=== PATIENT | male | born 1945 | race Caucasian/White ===

== ENCOUNTER 2016-10-11 07:11 | Day surgery (SDC) | payer MEDICARE, OTHER ==
[~2016-10-11 07:11] MED LIST: KETOROLAC TROMETHAMINE 0.45% 4 DROP/0.4 ML DROPERETTE OS PRN; TETRACAINE HCL 0.5% OPH SOLN 0.6 ML DROPERETTE OS PRN
[2016-10-11] MEDS ORDERED: PHENYLEPHRINE/KETOROLAC 1%-0.3% 4 ML VIAL ONE (07:16)
[2016-10-11] MEDS ORDERED: EPINEPHRINE INJ/PF 1 MG/1 ML AMPULE ONE (07:16)
[2016-10-11] MEDS ORDERED: CHONDR SU A NA/HYALUR INTRAOC KIT (SURGICARE) ONE (07:16)
[2016-10-11] MEDS ORDERED: LIDOCAINE 1% INJ-PF (10 MG/ML) 30 ML SDV ONE (07:16)
[2016-10-11] MEDS: TROPICAMIDE 1% OPH SOLN 3 ML OS PRN ×3 (08:01→08:21)
[2016-10-11] MEDS: BESIFLOXACIN HCL 0.6% OPH SUSP 5 ML BOTTLE OS PRN ×3 (08:01→09:24)
[2016-10-11] MEDS: CYCLOPENTOLATE 0.2%/PHENYLEPHRINE 1% OPH SOLN 2 ML OS PRN ×3 (08:01→08:21)
[2016-10-11] MEDS: TETRACAINE HCL 0.5% OPH SOLN 2 ML OS PRN ×3 (08:02→08:58)
[2016-10-11] MEDS ORDERED: FENTANYL CITRATE INJ/PF 100 MCG/2 ML AMPUL ONE (08:53)
[2016-10-11] MEDS ORDERED: MIDAZOLAM 2 MG/2 ML INJ ONE (08:53)
--- NOTE | 2016-10-11 10:19 | [facility] OPERATIVE REPORT E ---
[facility] Operative Report NAME: JOHN PAUL SWEENEY AGE: 71Y DATE OF SURGERY: ROOM: PREOPERATIVE DIAGNOSIS: CATARACT, LEFT EYE. POSTOPERATIVE DIAGNOSIS: CATARACT, LEF EYE. OPERATION: Cataract extraction with intraocular lens implant of the left eye. SURGEON: WALTER CAUSEY M.D. ANESTHESIA: Topical. PROCEDURE: After obtaining appropriate consent, the patient's T eye was prepped and draped in sterile fashion as well as the surgeon in a sterile manner and cataract surgery was started. First a paracentesis blade was used to make a small side-port incision. Viscoelastic was used to inflate the anterior chamber. Next a 2.4 mm incision was made with the paracentesis blade. A continuous capsulorrhexis incision was made using a cystotome and Utrata forceps. Following this hydrodissection was carried out to make the lens fully loose and mobile and it was rotated 90 degrees. Following this, a phokmv-oqi-fvsvezh technique was used to phacoemulsify the lens with a CDE of . The remaining cortex was removed with irrigation/aspiration. Provisc was instilled into the capsular bag to inflate the bag. A SN60WF, 20.5 SN60 WF lens CDE 13.34 diopter lens was placed. The remaining viscoelastic material was removed with irrigation/aspiration. Following this, a 10-0 nylon suture was used to close the incision and it was found to be watertight. Vigamox was instilled in the eye and a protective shield was placed over the eye. The patient returned to the postoperative recovery in stable condition. DICTATING PHYSICIAN: WALTER CAUSEY M.D. [id number] PHY#: [id number] ID: [id number] JOB#: [id number] ACCT: [id number] cc:WALTER CAUSEY M.D. >
--- NOTE | 2016-10-11 10:23 | DISCHARGE SUMMARY E ---
Discharge Summary NAME: JOHN PAUL SWEENEY : 1945 AGE: 71Y ADMITTED: 10/11/2016 DISCHARGED: BRIEF HISTORY: This is a 71-year-old male who underwent cataract extraction of the left eye. DIAGNOSIS: Cataract, left eye. INDICATIONS FOR SURGERY: He underwent surgery because he was having difficulty seeing words on the T.V. DISCHARGE INSTRUCTIONS AND FOLLOWUP: He should be on a regular diet. No bending at his waist. No heavy lifting. He is to use his Besivance, Ilevro and Durezol at 3:00 p.m. and 8:00 p.m. and sleep with a rigid shield, and I will see him for his 1-day postoperative tomorrow. DICTATING PHYSICIAN: WALTER CAUSEY M.D. [id number] PHY#: [id number] ID: [id number] JOB#: [id number] ACCT: [id number] cc:WALTER CAUSEY M.D. >
== END 2016-10-11 10:29 | disposition home or self-care (01) ==
LOC: SC 07:11
PROVIDERS: ATTEND Internal Medicine
PROC: 08RK3JZ Replacement of Left Lens with Synthetic Substitute, Percutaneous Approach (ICD-10-PCS; principal; 2016-10-11 08:30)
DX: H25.12 Age-related nuclear cataract, left eye (principal); H04.123 Dry eye syndrome of bilateral lacrimal glands; H57.03 Miosis; Z96.1 Presence of intraocular lens; E11.9 Type 2 diabetes mellitus without complications; I10 Essential (primary) hypertension; J44.9 Chronic obstructive pulmonary disease, unspecified; C91.11 Chronic lymphocytic leukemia of B-cell type in remission; Z87.891 Personal history of nicotine dependence; Z79.82 Long term (current) use of aspirin; Z79.4 Long term (current) use of insulin; Z79.51 Long term (current) use of inhaled steroids; Z79.899 Other long term (current) drug therapy; Z99.81 Dependence on supplemental oxygen; Z85.038 Personal history of other malignant neoplasm of large intestine
CPT/HCPCS: 82962; 66984; V2632; J2250; J3490 ×2; A9270; J3010; C9447; 142; J0171

== ENCOUNTER 2017-04-03 15:15 | Emergency (ER) | payer MEDICARE, OTHER ==
[2017-04-03] MEDS ORDERED: ACETAMINOPHEN 325 MG TABLET PO ONE ×2 (16:54→19:16)
--- NOTE | 2017-04-03 16:54 | ER Document Report ---
ED Medical Screen (RME) - General Chief Complaint: Cold Symptoms Stated Complaint: COLD Time Seen by Provider: 04/03/17 16:52 Mode of Arrival: Ambulatory Information source: Patient Notes: 72-year-old male presents to ED for cough congestion short of breath he is on oxygen. He is just recently been discharged from the hospital for pneumonia. He has got fever of 100.7 with decreased respirations and crackles. He is here with his who also has shortness of breath cough and congestion. He will be treated with Tylenol and x-ray will be received gotten as well as a CBC and chemistry. He is on home O2 I have greeted and performed a rapid initial assessment of this patient. A comprehensive ED assessment and evaluation of the patient, analysis of test results and completion of medical decision making process will be conducted by an additional ED providers. TRAVEL OUTSIDE OF THE [place] IN LAST 30 DAYS: No - Related Data Allergies/Adverse Reactions: amlodipine Allergy (Verified 04/03/17 15:17) swells and retains fluid pioglitazone [From Actos] Allergy (Verified 04/03/17 15:17) swells and retains fluid Past Medical History - Past Medical History Cardiac Medical History: Reports: Hx Heart Attack - 2002, Hx Hypercholesterolemia, Hx Hypertension Pulmonary Medical History: Reports: Hx Asthma, Hx COPD Neurological Medical History: Denies: Hx Cerebrovascular Accident, Hx Seizures GI Medical History: Denies: Hx Hepatitis, Hx Hiatal Hernia, Hx Ulcer Infectious Medical History: Denies: Hx Hepatitis Past Surgical History: Reports: Hx Open Heart Surgery - CABG X5 . Denies: Hx Pacemaker - Immunizations Hx Diphtheria, Pertussis, Tetanus Vaccination: No Physical Exam - Vital signs Vitals: Temp Pulse Resp BP Pulse Ox 100.7 F H 109 H 20 152/58 H 92 04/03/17 15:34 04/03/17 15:34 04/03/17 15:34 04/03/17 15:34 04/03/17 15:34 Course - Vital Signs Vital signs: Temp Pulse Resp BP Pulse Ox 100.7 F H 109 H 20 152/58 H 92 04/03/17 15:34 04/03/17 15:34 04/03/17 15:34 04/03/17 15:34 04/03/17 15:34
[2017-04-03 17:21] LABS: ABSOLUTE LYMPHOCYTES (AUTO) 0.7 10^3/uL (0.5-4.7); ABSOLUTE MONOCYTES (AUTO) 0.5 10^3/uL (0.1-1.4); ABSOLUTE NEUT (AUTO) 5.2 10^3/uL (1.7-8.2); BASOPHILS % (AUTO) 0.7 % (0-2); EOSINOPHILS % (AUTO) 0.5 % (0-6); HEMATOCRIT 42.1 % (37.9-51.0); HEMOGLOBIN 14.2 g/dL (13.5-17.0); HGB HCT DIFFERENCE 0.5; LYMPHOCYTES % (AUTO) 10.9 % (13-45); MEAN CORPUSCULAR HEMOGLOBIN 27.8 pg (27.0-33.4); MEAN CORPUSCULAR HGB CONC 33.6 g/dL (32.0-36.0); MEAN CORPUSCULAR VOLUME 83 fl (80-97); MONOCYTES % (AUTO) 8.1 % (3-13); RED CELL DISTRIBUTION WIDTH 14.8 % (11.5-14.0); SEGMENTED NEUTROPHILS % (AUTO) 79.8 % (42-78); WHITE BLOOD COUNT 6.5 10^3/uL (4.0-10.5)
--- NOTE | 2017-04-03 17:26 | RADIOLOGY REPORT (SQ) ---
EXAM DESCRIPTION: CHEST PA/LAT COMPLETED DATE/TIME: 04/03/2017 5:16 pm REASON FOR STUDY: Cough congestion fever COMPARISON: 06/08/2015 EXAM PARAMETERS: NUMBER OF VIEWS: two views TECHNIQUE: Digital Frontal and Lateral radiographic views of the chest acquired. RADIATION DOSE: NA LIMITATIONS: none FINDINGS: LUNGS AND PLEURA: Cannot exclude ill-defined opacification in the retrocardiac area with s light blurring of the left hemidiaphragm. MEDIASTINUM AND HILAR STRUCTURES: No masses or contour abnormalities. HEART AND VASCULAR STRUCTURES: Heart normal size. No evidence for failure. BONES: No acute findings. HARDWARE: None in the chest. OTHER: No other significant finding. IMPRESSION: Cannot exclude a limited left lower lobe infiltrate. TECHNICAL DOCUMENTATION: JOB ID: [id number] [employer]- All Rights Reserved
[2017-04-03 17:37] LABS: ALANINE AMINOTRANSFERASE 65 U/L (21-72); ALBUMIN 4.4 g/dL (3.5-5.0); ALKALINE PHOSPHATASE 60 U/L (38-126); ANION GAP 14 (5-19); ASPARTATE AMINO TRANSFERASE 69 U/L (17-59); BILIRUBIN,DIRECT 0.5 mg/dL (0.0-0.4); BLOOD UREA NITROGEN 11 mg/dL (7-20); CALCIUM 9.6 mg/dL (8.4-10.2); CARBON DIOXIDE 28 mmol/L (22-30); CHLORIDE 98 mmol/L (98-107); CREATININE RESULT 0.84 mg/dL (0.52-1.25); GLUCOSE 211 mg/dL (75-110); POTASSIUM 4.5 mmol/L (3.6-5.0); SODIUM 139.6 mmol/L (137-145); TOTAL PROTEIN 6.7 g/dL (6.3-8.2)
[2017-04-03] MEDS ORDERED: LEVOFLOXACIN 750 MG TABLET PO ONE (19:15)
[2017-04-03] MEDS ORDERED: NORMAL SALINE 1000 ML 500 ML IV ONE (19:16)
[2017-04-03] MEDS ORDERED: DEXAMETHASONE SOD PHOS INJ 10 MG/1 ML VIAL IV ONE (19:19)
--- NOTE | 2017-04-03 19:22 | ER Document Report ---
ED General - General Chief Complaint: Cold Symptoms Stated Complaint: COLD Time Seen by Provider: 04/03/17 16:52 Mode of Arrival: Ambulatory Notes: Patient is a 72-year-old male with a past medical history of COPD with chronic oxygen dependence who presents with 3 days for sinus pressure, cough, sputum production, and feeling generally fatigued. He also notes that he has had a fever. The symptoms have been constant since onset on Monday morning. He has been trying [id number]-nrm-leefvgd remedies without any significant improvement of his symptoms. Nothing worsens his symptoms. His is here and has the same symptoms. He has not seen his primary doctor regarding today's concerns. He notes that he has had some diarrhea but denies any vomiting. He did receive his influenza vaccine this year and has received a pneumonia vaccine in the past. He notes he was recently hospitalized for pneumonia but notes that his symptoms are not as severe today. TRAVEL OUTSIDE OF THE [place] IN LAST 30 DAYS: No - Related Data Allergies/Adverse Reactions: amlodipine Allergy (Verified 04/03/17 15:17) swells and retains fluid pioglitazone [From Actos] Allergy (Verified 04/03/17 15:17) swells and retains fluid Past Medical History - General Information source: Patient - Social History Smoking Status: Never Smoker Chew tobacco use (# tins/day): No Frequency of alcohol use: None Drug Abuse: None Lives with: Spouse/Significant other Family History: Reviewed & Not Pertinent Patient has suicidal ideation: No Patient has homicidal ideation: No - Past Medical History Cardiac Medical History: Reports: Hx Heart Attack - 2003, Hx Hypercholesterolemia, Hx Hypertension Pulmonary Medical History: Reports: Hx Asthma, Hx COPD Neurological Medical History: Denies: Hx Cerebrovascular Accident, Hx Seizures Renal/ Medical History: Denies: Hx Peritoneal Dialysis GI Medical History: Denies: Hx Hepatitis, Hx Hiatal Hernia, Hx Ulcer Infectious Medical History: Denies: Hx Hepatitis Past Surgical History: Reports: Hx Open Heart Surgery - CABG X5 . Denies: Hx Pacemaker - Immunizations Hx Diphtheria, Pertussis, Tetanus Vaccination: No Hx Pneumococcal Vaccination: 05/01/11 Review of Systems - Review of Systems Notes: Constitutional: Positive for fever. HENT: Negative for sore throat. Eyes: Negative for visual changes. Cardiovascular: Negative for chest pain. Respiratory: Positive for cough and shortness of breath Gastrointestinal: Positive for diarrhea Genitourinary: Negative for dysuria. Musculoskeletal: Negative for back pain. Skin: Negative for rash. Neurological: Negative for headaches, weakness or numbness. 10 point ROS negative except as marked above and in HPI. Physical Exam - Vital signs Vitals: Temp Pulse Resp BP Pulse Ox 100.7 F H 109 H 20 152/58 H 92 04/03/17 15:34 04/03/17 15:34 04/03/17 15:34 04/03/17 15:34 04/03/17 15:34 Interpretation: Tachycardic, Tachypneic, Febrile Notes: PHYSICAL EXAMINATION: GENERAL: Appears somewhat uncomfortable but in no acute distress HEAD: Atraumatic, normocephalic. EYES: Pupils equal round and reactive to light, extraocular movements intact, sclera anicteric, conjunctiva are normal. ENT: nares patent, oropharynx clear without exudates. Moderately dry mucous membranes. NECK: Normal range of motion, supple without lymphadenopathy LUNGS: Breath sounds clear to auscultation bilaterally and equal. No wheezes rales or rhonchi. HEART: Regular rate and rhythm without murmurs ABDOMEN: Soft, nontender, normoactive bowel sounds. No guarding, no rebound. No masses appreciated. EXTREMITIES: Normal range of motion, no pitting or edema. No cyanosis. NEUROLOGICAL: No focal neurological deficits. Moves all extremities spontaneously and on command. PSYCH: Normal mood, normal affect. SKIN: Warm, Dry, normal turgor, no rashes or lesions noted. Course - Re-evaluation Re-evalutation: 04/03/17 19:17 Patient presents with a clinical history and exam most consistent with an acute viral bronchitis. His is here with the same symptoms. Patient is overall well in appearance without tachypnea, hypoxemia, tachycardia, or difficulty with ambulation. He is saturating 93-94% on his home 2 L by nasal cannula. There are intermittent rhonchorous breath sounds and slight diminished breath sounds at the left base. A chest x-ray does show a possible pneumonia and given that patient is at elevated risk for clinical deterioration if this is a true pneumonia, I will empirically begin levofloxacin although I do suspect more likely that this is a viral picture given multiple family members were sick with the same symptoms. Patient does have additional signs of upper respiratory infection including nasal congestion, sore throat, and sinus pressure. Will also treat with a dose of dexamethasone given his underlying COPD. I have had a risks and benefits conversation with the patient at the bedside about admission versus outpatient management and close outpatient follow -up with oral antibiotics. Patient is agreeable to outpatient follow-up stating he would prefer to try this method first and I do believe this is a reasonable option. He is overall well in appearance, in no distress, tolerating oral intake, and has vitals within normal limits. At this time will discharge with return precautions and follow-up recommendations. Verbal discharge instructions given a the bedside and opportunity for questions given. Medication warnings reviewed. Patient is in agreement with this plan and has verbalized understanding of return precautions and the need for primary care follow-up in the next 24-72 hours. - Vital Signs Vital signs: Temp Pulse Resp BP Pulse Ox 97.8 F 109 H 19 138/80 H 95 04/03/17 20:30 04/03/17 15:34 04/03/17 20:34 04/03/17 20:34 04/03/17 20:34 - Laboratory Result Diagrams: 04/03/17 17:05 04/03/17 17:05 Laboratory results interpreted by me: 04/03/17 04/03/17 17:05 17:05 RDW 14.8 H Plt Count 101 L Seg Neutrophils % 79.8 H Lymphocytes % 10.9 L Glucose 211 H Direct Bilirubin 0.5 H AST 69 H - Diagnostic Test Radiology reviewed: Image reviewed, Reports reviewed Radiology results interpreted by me: 04/03/17 19:19 Chest x-ray: Small left lower lobe infiltrate Discharge - Discharge Clinical Impression: Left lower lobe pneumonia Qualifiers: Pneumonia type: due to unspecified organism Qualified Code(s): J18.1 - Lobar pneumonia, unspecified organism Acute bronchitis Qualifiers: Bronchitis organism: unspecified organism Qualified Code(s): J20.9 - Acute bronchitis, unspecified Condition: Stable Disposition: HOME, SELF-CARE Additional Instructions: You have been diagnosed with a pneumonia based on a chest x-ray but your history does suggest that this is more likely to be a viral bronchitis. However , given her underlying oxygen dependence and lung disease you are being started on antibiotics incase the possible pneumonia seen on chest xray is present. It is very important that you take all of your antibiotics until they are gone even if you are feeling better. Please return to the emergency department immediately if you began having worsening shortness of breath, become confused, have worsening pain, pass out, have persistent vomiting that prevents you from being able to drink fluids for more than 12 hours, or have any other symptoms that are worrisome to you. Please follow-up with your primary care doctor in the next 1-2 days. Prescriptions: Levofloxacin [Levaquin 750 mg Tablet] 750 mg PO DAILY #4 tablet
[2017-04-03 20:49] VITALS: BP 138/80
== END 2017-04-03 20:35 | disposition home or self-care (01) ==
LOC: ER 15:15
DX: J18.1 Lobar pneumonia, unspecified organism (principal); J20.9 Acute bronchitis, unspecified; J44.9 Chronic obstructive pulmonary disease, unspecified; R53.83 Other fatigue; R50.9 Fever, unspecified; Z99.81 Dependence on supplemental oxygen
CPT/HCPCS: 99284; 96374; 36415; 85025; 80053; 71020; A9270 ×2; J7030; J1100

== ENCOUNTER 2017-04-05 12:17 | Inpatient (IN) | payer MEDICARE, OTHER ==
[2017-04-05] MEDS ORDERED: METHYLPREDNISOLONE INJ 125 MG/2 ML SDV IV ONE (12:37)
[2017-04-05] MEDS ORDERED: IPRATROPIUM/ALBUTEROL 0.5-2.5 MG/3 ML AMPUL NEB ONE (12:38)
--- NOTE | 2017-04-05 12:41 | ER Document Report ---
ED Medical Screen (RME) - General Chief Complaint: Breathing Difficulty Stated Complaint: SHORTNESS OF BREATH,HEADACHE,NAUSEA Time Seen by Provider: 04/05/17 12:28 Notes: This 72-year-old male patient with past medical history of myocardial infarction , coronary artery disease, insulin-dependent diabetes, hypertension, O2 dependent COPD, BPH, hyperlipidemia, has had a 5 vessel CABG. Has had worsening respiratory status with yellow productive cough since 2016. He was seen in the emergency room on 04/03/2017 felt to have bronchitis with COPD exacerbation. Chest x-ray suggested left sided infiltrate. He was started on Levaquin, took 1 dose and it caused nausea and vomiting so is unable to continue. He did have the same response to Levaquin in the past and had to discontinue it at that time. He also reports that he has not had his bowels moving currently, he thinks it is gas but he is not sure. I have greeted and performed a rapid initial assessment of this patient. A comprehensive ED assessment and evaluation of the patient, analysis of test results and completion of the medical decision making process will be conducted by additional ED providers. TRAVEL OUTSIDE OF THE [place] IN LAST 30 DAYS: No - Related Data Allergies/Adverse Reactions: amlodipine Allergy (Verified 04/03/17 15:17) swells and retains fluid pioglitazone [From Actos] Allergy (Verified 04/03/17 15:17) swells and retains fluid Past Medical History - Past Medical History Cardiac Medical History: Reports: Hx Heart Attack - 2003, Hx Hypercholesterolemia, Hx Hypertension Pulmonary Medical History: Reports: Hx Asthma, Hx COPD Neurological Medical History: Denies: Hx Cerebrovascular Accident, Hx Seizures Renal/ Medical History: Denies: Hx Peritoneal Dialysis GI Medical History: Denies: Hx Hepatitis, Hx Hiatal Hernia, Hx Ulcer Infectious Medical History: Denies: Hx Hepatitis Past Surgical History: Reports: Hx Open Heart Surgery - CABG X5 . Denies: Hx Pacemaker - Immunizations Hx Diphtheria, Pertussis, Tetanus Vaccination: No Physical Exam - Vital signs Vitals: Temp Pulse Resp BP Pulse Ox 98.8 F 124 H 20 157/70 H 91 L 04/05/17 12:23 04/05/17 12:23 04/05/17 12:23 04/05/17 12:23 04/05/17 12:23 Course - Vital Signs Vital signs: Temp Pulse Resp BP Pulse Ox 98.8 F 124 H 20 157/70 H 91 L 04/05/17 12:23 04/05/17 12:23 04/05/17 12:23 04/05/17 12:23 04/05/17 12:23
[2017-04-05 13:29] LABS: ABSOLUTE EOSINOPHILS # (AUTO) 0.1 10^3/uL (0.0-0.6); ABSOLUTE LYMPHOCYTES (AUTO) 0.8 10^3/uL (0.5-4.7); ABSOLUTE MONOCYTES (AUTO) 0.4 10^3/uL (0.1-1.4); ABSOLUTE NEUT (AUTO) 3.3 10^3/uL (1.7-8.2); BASOPHILS % (AUTO) 0.4 % (0-2); HEMATOCRIT 42.5 % (37.9-51.0); HEMOGLOBIN 14.1 g/dL (13.5-17.0); HGB HCT DIFFERENCE -0.2; LYMPHOCYTES % (AUTO) 17.6 % (13-45); MEAN CORPUSCULAR HEMOGLOBIN 27.2 pg (27.0-33.4); MEAN CORPUSCULAR HGB CONC 33.1 g/dL (32.0-36.0); MEAN CORPUSCULAR VOLUME 82 fl (80-97); MONOCYTES % (AUTO) 8.9 % (3-13); RED BLOOD COUNT 5.16 10^6/uL (4.35-5.55); RED CELL DISTRIBUTION WIDTH 14.9 % (11.5-14.0); SEGMENTED NEUTROPHILS % (AUTO) 71.1 % (42-78); WHITE BLOOD COUNT 4.6 10^3/uL (4.0-10.5)
[2017-04-05 13:42] LABS: ALANINE AMINOTRANSFERASE 58 U/L (21-72); ALBUMIN 4.4 g/dL (3.5-5.0); ALKALINE PHOSPHATASE 57 U/L (38-126); ANION GAP 16 (5-19); ASPARTATE AMINO TRANSFERASE 56 U/L (17-59); BILIRUBIN,DIRECT 0.6 mg/dL (0.0-0.4); BILIRUBIN,TOTAL 0.8 mg/dL (0.2-1.3); BLOOD UREA NITROGEN 16 mg/dL (7-20); CALCIUM 9.5 mg/dL (8.4-10.2); CARBON DIOXIDE 27 mmol/L (22-30); CHLORIDE 99 mmol/L (98-107); CREATINE KINASE 40 U/L (55-170); CREATININE RESULT 0.76 mg/dL (0.52-1.25); GLUCOSE 299 mg/dL (75-110); POTASSIUM 4.3 mmol/L (3.6-5.0); SODIUM 141.5 mmol/L (137-145)
--- NOTE | 2017-04-05 13:43 | EKG REPORT ---
SEVERITY:- ABNORMAL ECG - SINUS TACHYCARDIA VENTRICULAR BIGEMINY LEFT ATRIAL ABNORMALITY : Confirmed by: Zaida Carballo 05-Apr-2017 13:42:33
--- NOTE | 2017-04-05 14:27 | ER Document Report ---
ED General - General Chief Complaint: Breathing Difficulty Stated Complaint: SHORTNESS OF BREATH,HEADACHE,NAUSEA Time Seen by Provider: 04/05/17 12:28 TRAVEL OUTSIDE OF THE [place] IN LAST 30 DAYS: No - HPI Notes: Patient is a 72-year-old male with a past medical history significant for AR, CAD, insulin-dependent diabetes, hypertension, oxygen dependent COPD, BPH, hyperlipidemia, and coronary artery bypass 5 who presents the ED complaining of continued nasal congestion/discharge, shortness of breath, cough, subjective intermittent fever, & wheezing since his evaluation 2 days ago. Patient states that overall his symptoms have been ongoing for about 3 days. Patient was diagnosed with a possible left lower lobe pneumonia on chest x-ray, but the clinician at the time continue to believe it was a viral illness. Patient was sent home on Levaquin as precautionary, but patient cannot tolerate Levaquin so he did not take any of the medication. Patient states that his symptoms have been slowly progressive since Monday and have not been improving. Patient has been using nebulizer treatments at home and has been having trouble sleeping. Patient states that he did try to have a bowel movement today, and was only able to get out a small hard stool. Pt states he feels 'gassy.' Patient believes that he may have some constipation issues. Otherwise he is still eating and drinking without any difficulties. He is still urinating normally. Patient is still ambulatory at home. Denies any headache, fever, neck pain, sore throat, chest pain, palpitations, syncope, abdominal pain, nausea/vomiting/ diarrhea, urinary retention, dysuria, hematuria, or rash. - Related Data Allergies/Adverse Reactions: amlodipine Allergy (Verified 04/03/17 15:17) swells and retains fluid levofloxacin Allergy (Verified 04/05/17 12:47) Chest pain pioglitazone [From Actos] Allergy (Verified 04/03/17 15:17) swells and retains fluid Home Medications: Current Home Medications Melatonin/Pyridoxine [Melatonin 5 mg Tablet] 1 tab PO HSP PRN 04/05/17 [History] Metformin HCl [Metformin HCl] 1,000 mg PO BID 04/05/17 [History] Past Medical History - Social History Smoking Status: Unknown if Ever Smoked Chew tobacco use (# tins/day): No Frequency of alcohol use: None Drug Abuse: None Family History: Reviewed & Not Pertinent Patient has suicidal ideation: No Patient has homicidal ideation: No - Past Medical History Cardiac Medical History: Reports: Hx Heart Attack - 2003, Hx Hypercholesterolemia, Hx Hypertension Pulmonary Medical History: Reports: Hx Asthma, Hx COPD, Hx Pneumonia Neurological Medical History: Denies: Hx Cerebrovascular Accident, Hx Seizures Renal/ Medical History: Denies: Hx Peritoneal Dialysis GI Medical History: Denies: Hx Hepatitis, Hx Hiatal Hernia, Hx Ulcer Infectious Medical History: Denies: Hx Hepatitis Past Surgical History: Reports: Hx Open Heart Surgery - CABG X5 . Denies: Hx Pacemaker - Immunizations Hx Diphtheria, Pertussis, Tetanus Vaccination: No Hx Pneumococcal Vaccination: 05/01/11 Review of Systems - Review of Systems Notes: REVIEW OF SYSTEMS: CONSTITUTIONAL : see hpi. EENT: see hpi. no eye complaints CARDIOVASCULAR: Denies chest pain. Denies palpitations or racing or irregular heart beat. Denies ankle edema. RESPIRATORY: see hpi GASTROINTESTINAL: see hpi GENITOURINARY: Denies difficulty urinating, painful urination, burning, frequency, blood in urine, or discharge. MUSCULOSKELETAL: Denies back or neck pain or stiffness. Denies joint pain or swelling. SKIN: Denies rash, lesions or sores. NEUROLOGICAL: Denies confusion or altered mental status. Denies passing out or loss of consciousness. Denies dizziness or lightheadedness. Denies headache. Denies weakness or paralysis or loss of use of either side. Denies problems with gait or speech. Denies sensory loss, numbness, or tingling. ALL OTHER SYSTEMS REVIEWED AND NEGATIVE. Dictation was performed using [employer] voice recognition software Physical Exam - Vital signs Vitals: Temp Pulse Resp BP Pulse Ox 98.8 F 124 H 20 157/70 H 91 L 04/05/17 12:23 04/05/17 12:23 04/05/17 12:23 04/05/17 12:23 04/05/17 12:23 Notes: PHYSICAL EXAMINATION: GENERAL: Well-appearing, well-nourished and in no acute distress. A&Ox4, sitting at bedside comfortably HEAD: Atraumatic, normocephalic. EYES: Pupils equal round and reactive to light, extraocular movements intact, sclera anicteric, conjunctiva are normal. ENT: EAC clear b/l. TM's intact b/l without erythema, fluid, or perforation. Nares patent and without discharge. oropharynx clear without exudates. No tonsilar hypertrophy or erythema. Moist mucous membranes. No sinus tenderness. NECK: Normal range of motion, supple without lymphadenopathy. No rigidity/ meningismus. LUNGS: Pt speaking 5-6 words per sentence prior to stopping to breath. + crackles vs atelectasis sounds b/l. + scant wheezes with prolonged expirations. No retractions HEART: sinus tach, intermittent irregularity without murmurs, rubs, gallops. ABDOMEN: Soft, nontender, nondistended abdomen. No guarding, no rebound. No masses appreciated. Normal bowel sounds present. No CVA tenderness bilaterally. Musculoskeletal: FROM to passive/active. Strength 5+/5. No calf tenderness. Extremities: No cyanosis, clubbing, or edema b/l. Peripheral pulses 2+. Capillary refill less than 3 seconds. NEUROLOGICAL: Cranial nerves grossly intact. Normal speech, normal gait. Normal sensory, motor exams PSYCH: Normal mood, normal affect. SKIN: Warm, Dry, normal turgor, no rashes or lesions noted. Course - Re-evaluation Re-evalutation: 04/05/17 15:52 recheck of patient. Pt doing well w/ no new concerns or complaints. resting O2 sat on 2L NC @ 95%. Pt continues to be slightly tachycardic at 105. Pt currently finishing the magnesium treatment. CXR showed no acute changes from Monday's result Abd XR showed gastric bubble w/o obstruction pattern. + stool throughout noted otherwise. CBC, CMP unremarkable for acute pathology 04/05/17 17:03 Venous blood gas, D-dimer, Cardiac enzymes/EKG x2 unremarkable for acute pathology. Pt continues to be tachycardic at 105 +/- and is at 93% on RA with 2L via NC Pt tachypneic with no resp distress or retractions Lung sounds did improve s/p magnesium, steroid, duoneb We will ambulate patient with O2 to further assess perfusion. 04/05/17 17:43 Pt dropped to 88% on 2L O2 with ambulation after approx 15 steps. Pt does not wish to be discharged home and is ill at home and states that she cannot care for him. We will try for admit for COPD exacerbation. 04/05/17 17:46 I did speak with Dr. Strauss who stated that he did switch his levaquin to doxy prior to today. Reviewed case with Dr. Strauss who agreed on admission for hypoxia and copd exacerbation possible pneumonia for full admit to tele. Reviewed with patient who is in agreement with admit/plan. - Vital Signs Vital signs: Temp Pulse Resp BP Pulse Ox 98.8 F 124 H 23 H 157/70 H 94 04/05/17 12:23 04/05/17 12:23 04/05/17 17:00 04/05/17 12:23 04/05/17 17:00 - Laboratory Result Diagrams: 04/05/17 13:07 04/05/17 13:07 Laboratory results interpreted by me: 04/05/17 04/05/17 13:07 13:07 RDW 14.9 H Plt Count 92 L Glucose 299 H Direct Bilirubin 0.6 H Creatine Kinase 40 L Discharge - Discharge Clinical Impression: COPD exacerbation, Hypoxia Condition: Stable Disposition: ADMITTED INPATIENT Admitting Provider: [facility] Admitted: Telemetry
--- NOTE | 2017-04-05 14:43 | RADIOLOGY REPORT (SQ) ---
EXAM DESCRIPTION: ABDOMEN 2 VIEWS COMPLETED DATE/TIME: 04/05/2017 2:29 pm REASON FOR STUDY: Pneumonia, COPD, abdominal pain, possible constipa COMPARISON: 04/21/2015. NUMBER OF VIEWS: Two views. TECHNIQUE: Supine and erect/decubitus radiographic images of the abdomen acquired. LIMITATIONS: None. FINDINGS: FREE AIR: None. No abnormal gas collections. LUNG BASES: Clear. BOWEL GAS PATTERN: Prominent gastric air bubble. No dilated bowel loops loops or air fluid levels. CALCIFICATIONS: No suspicious calcifications. SOFT TISSUES: No gross mass or suggestion of organomegaly. HARDWARE: Surgical clips. BONES: No acute fracture. No worrisome bone lesions. OTHER: No other significant finding. IMPRESSION: PROMINENT GASTRIC AIR BUBBLE. THIS COULD BE INCIDENTAL OR COULD BE SECONDARY TO GASTROP ARESIS. NO OTHER SIGNIFICANT FINDINGS. TECHNICAL DOCUMENTATION: JOB ID: [id number] [employer]- All Rights Reserved
[2017-04-05] MEDS ORDERED: NORMAL SALINE 1000 ML 1,000 ML IV ONE (14:45)
--- NOTE | 2017-04-05 14:45 | RADIOLOGY REPORT (SQ) ---
EXAM DESCRIPTION: CHEST PA/LAT COMPLETED DATE/TIME: 04/05/2017 2:29 pm REASON FOR STUDY: Pneumonia, COPD, abdominal pain, possible constipa COMPARISON: 04/03/2017 and 06/08/2015. EXAM PARAMETERS: NUMBER OF VIEWS: two views TECHNIQUE: Digital Frontal and Lateral radiographic views of the chest acquired. RADIATION DOSE: NA LIMITATIONS: none FINDINGS: LUNGS AND PLEURA: Chronic interstitial changes. Faint density in the left lower lobe unch anged. No masses or pneumothorax. No pleural effusion. MEDIASTINUM AND HILAR STRUCTURES: No masses or contour abnormalities. HEART AND VASCULAR STRUCTURES: Heart normal size. No evidence for failure. BONES: No acute findings. HARDWARE: Sternotomy wires. OTHER: No other significant finding. IMPRESSION: CHRONIC INTERSTITIAL SCARRING. FAINT DENSITY IN THE LEFT LOWER LOBE MAY BE DUE TO SCARR ING OR ATELECTASIS OR FAINT PNEUMONIA. NO CHANGE FROM THE RECENT STUDY. TECHNICAL DOCUMENTATION: JOB ID: [id number] [employer]- All Rights Reserved
[2017-04-05] MEDS: MAGNESIUM SULFATE/D5W 1 GM/100 ML RTUPB IV SCH ×2 (15:10→16:45)
[2017-04-05 16:20] LABS: VENOUS BLOOD BASE EXCESS -1.5 mmol/L; VENOUS BLOOD PCO2 38.5 mmHg (35-63); VENOUS BLOOD PH 7.39 (7.30-7.42)
[2017-04-05 19:11] LABS: APPEARANCE,URINE CLEAR; BILIRUBIN,URINE NEGATIVE (NEGATIVE); GLUCOSE, URINE >=500 mg/dL (NEGATIVE); KETONES,URINE NEGATIVE (NEGATIVE); LEUKOCYTE ESTERASE,URINE NEGATIVE (NEGATIVE); NITRITE,URINE NEGATIVE (NEGATIVE); PROTEIN,URINE 100 mg/dL (NEGATIVE); URINE SPECIFIC GRAVITY 1.026; UROBILINOGEN,URINE NEGATIVE mg/dL (<2.0)
--- NOTE | 2017-04-05 19:14 | PDOC H&P ---
History of Present Illness Admission Date/PCP: 04/05/17 18:00 KELSEY JANIgnacio Patient complains of: Difficulty with breathing History of Present Illness: JOHN PAUL SWEENEY is a 72 year old male known to my practice who was seen at the ED a day ago for similar presentation ad diagnosed with probable left lower lobe pneumonia. He was discharge home on Levofloxacin but he claimed intolerant of the medication and did not fill the prescription. He represented to the Ed with worsening of his shortness of breath, associated fever, productive cough, chest pain, and intermittent diaphoresis necessitating need for change clothes. His evaluation in the ED was significant for associated exertional hypoxemia. Patient has end stage COPD on continuous supplemental oxygen via nasal cannula. He denied associated headache, sore throat, palpitations, syncope, abdominal pain, nausea, vomiting, diarrhea, constipation, urinary retention, dysuria, hematuria, or rash. Other morbidities include Diabetes Mellitus, Hypertension, CAD s/p CABG, Hyperlipidemia, BPH, and arthritis. Past Medical History Cardiac Medical History: Reports: Myocardial Infarction - 2002, Hyperlipidema, Hypertension Pulmonary Medical History: Reports: Asthma, Chronic Obstructive Pulmonary Disease (COPD), Pneumonia Neurological Medical History: Denies: Seizures GI Medical History: Denies: Hepatitis, Hiatal Hernia Hematology: Reports: Anemia - HX Denies: Sickle Cell Disease Past Surgical History Past Surgical History: Denies: Pacemaker Social History Smoking Status: Unknown if Ever Smoked Frequency of Alcohol Use: None Hx Recreational Drug Use: No Family History Family History: Reviewed & Not Pertinent Parental Family History Reviewed: Yes Children Family History Reviewed: Yes Sibling(s) Family History Reviewed.: Yes Medication/Allergy Home Medications: Aspirin [Ecotrin 81 mg EC Tablet] 81 mg PO DAILY 04/15/12 Metoprolol Tartrate [Lopressor 25 mg Tablet] 25 mg PO BID 04/15/12 Tamsulosin HCl [Flomax 0.4 mg Cap.sr] 0.4 mg PO DAILY #7 cap.sr.24h 04/15/12 Arformoterol Tartrate [Brovana Inhalation Solution 15 mcg/2 mL] 15 mcg IH BID PRN 03/12/14 Budesonide [Pulmicort Neb 1 mg/2 mL Ampule] 1 dose IH BID 03/12/14 Albuterol Sulfate [Ventolin Hfa] 1 - 2 puff IH PRN PRN 10/04/16 Benazepril HCl 40 mg PO DAILY 10/04/16 Insulin Glargine,Hum.rec.anlog [Lantus] 100 unit SQ DAILY 10/04/16 Insulin Lispro [Humalog] 100 unit SQ ASDIR PRN 10/04/16 Krill Oil/[place]-3/Dha/Epa [[place]-3 Krill Oil Softgel] 1 each PO DAILY 10/04/16 Melatonin/Pyridoxine [Melatonin 5 mg Tablet] 1 tab PO HSP PRN 04/05/17 Metformin HCl [Metformin HCl] 1,000 mg PO BID 04/05/17 Allergies/Adverse Reactions: amlodipine Allergy (Verified 04/03/17 15:17) swells and retains fluid levofloxacin Allergy (Verified 04/05/17 12:47) Chest pain pioglitazone [From Actos] Allergy (Verified 04/03/17 15:17) swells and retains fluid Review of Systems Constitutional: PRESENT: fever(s), night sweats Nose, Mouth, and Throat: PRESENT: headache(s). ABSENT: mouth pain, sore throat , vertigo Cardiovascular: PRESENT: chest pain, dyspnea on exertion Respiratory: PRESENT: cough, sputum Gastrointestinal: ABSENT: abdominal pain, constipation, diarrhea, hematemesis, hematochezia, nausea, vomiting Genitourinary: ABSENT: dysuria, hematuria Musculoskeletal: ABSENT: joint swelling Integumentary: ABSENT: rash, wounds Neurological: ABSENT: abnormal gait, abnormal speech, confusion, dizziness, focal weakness, syncope Psychiatric: ABSENT: anxiety, depression, homidical ideation, suicidal ideation Endocrine: ABSENT: cold intolerance, heat intolerance, polydipsia, polyuria Hematologic/Lymphatic: ABSENT: easy bleeding, easy bruising, lymphadenopathy Allergic/Immunologic: ABSENT: seasonal rhinorrhea Physical Exam Vital Signs: Temp Pulse Resp BP Pulse Ox 98.8 F 124 H 23 H 157/70 H 94 04/05/17 12:23 04/05/17 12:23 04/05/17 17:00 04/05/17 12:23 04/05/17 17:00 General appearance: PRESENT: mild distress, obese Head exam: PRESENT: atraumatic, normocephalic Eye exam: PRESENT: conjunctiva pink, EOMI, PERRLA. ABSENT: scleral icterus Ear exam: PRESENT: normal external ear exam Mouth exam: PRESENT: moist, tongue midline Throat exam: ABSENT: post pharyngeal erythema, tonsillar erythema, tonsillar exudate, tonsillogmegaly, other Neck exam: PRESENT: full ROM. ABSENT: carotid bruit, JVD, lymphadenopathy, thyromegaly Respiratory exam: PRESENT: decreased breath sounds, rhonchi - expitory phase Cardiovascular exam: PRESENT: RRR. ABSENT: diastolic murmur, rubs, systolic murmur Pulses: PRESENT: normal dorsalis pedis pul, +2 pedal pulses bilateral Vascular exam: PRESENT: normal capillary refill. ABSENT: pallor GI/Abdominal exam: PRESENT: normal bowel sounds, soft. ABSENT: distended, guarding, mass, organolmegaly, rebound, tenderness Rectal exam: PRESENT: deferred Gentrourinary exam: ABSENT: ecchymosis, erythema, lacerations, lesions, scrotal swelling, testicular tenderness, urethral discharge, indwelling catheter, other Extremities exam: ABSENT: pedal edema Musculoskeletal exam: PRESENT: normal inspection Neurological exam: PRESENT: alert, awake, oriented to person, oriented to place , oriented to time, oriented to situation, CN II-XII grossly intact. ABSENT: motor sensory deficit Psychiatric exam: PRESENT: appropriate affect, normal mood. ABSENT: homicidal ideation, suicidal ideation Skin exam: PRESENT: dry, intact, warm. ABSENT: cyanosis, rash Results Laboratory Results: I reviewed his laboratory results on [employer] and form significant part of my decision making. Impressions: Abdomen X-Ray 04/05/17 12:36 IMPRESSION: PROMINENT GASTRIC AIR BUBBLE. THIS COULD BE INCIDENTAL OR COULD BE SECONDARY TO GASTROPARESIS. NO OTHER SIGNIFICANT FINDINGS. Chest X-Ray 04/05/17 12:36 IMPRESSION: CHRONIC INTERSTITIAL SCARRING. FAINT DENSITY IN THE LEFT LOWER LOBE MAY BE DUE TO SCARRING OR ATELECTASIS OR FAINT PNEUMONIA. NO CHANGE FROM THE RECENT STUDY. Assessment & Plan - Diagnosis (1) Left lower lobe pneumonia Qualifiers: Pneumonia type: due to unspecified organism Qualified Code(s): J18.1 - Lobar pneumonia, unspecified organism Is this a current diagnosis for this admission?: Yes Plan: See attending physician orders (2) COPD exacerbation Is this a current diagnosis for this admission?: Yes Plan: See attending physician orders (3) Hypoxia Is this a current diagnosis for this admission?: Yes Plan: See attending physician orders (4) CAD (coronary artery disease) Qualifiers: Coronary Disease-Associated Artery/Lesion type: [place] artery Associated angina: without angina Is this a current diagnosis for this admission?: Yes Plan: See attending physician orders (5) HTN (hypertension) Qualifiers: Hypertension type: essential hypertension Qualified Code(s): I10 - Essential (primary) hypertension Is this a current diagnosis for this admission?: Yes Plan: See attending physician orders (6) HLD (hyperlipidemia) Qualifiers: Hyperlipidemia type: unspecified Qualified Code(s): E78.5 - Hyperlipidemia , unspecified Is this a current diagnosis for this admission?: Yes Plan: See attending physician orders (8) Osteoarthritis Qualifiers: Osteoarthritis location: multiple joints Is this a current diagnosis for this admission?: Yes Plan: See attending physician orders - Time Time Spent: 50 to 70 Minutes Medications reviewed and adjusted accordingly: Yes Anticipated discharge: Home with Homehealth - Inpatient Certification Based on my medical assessment, after consideration of the patient's comorbidities, presenting symptoms, or acuity I expect that the services needed warrant INPATIENT care.: Yes I certify that my determination is in accordance with my understanding of Medicare's requirements for reasonable and necessary INPATIENT services [42 CFR 412.3e].: Yes Medical Necessity: Need Close Monitoring Due to Risk of Patient Decompensation, Need For IV Fluids, Need For Continuous Telemetry Monitoring, Need for Nebulizer Therapy and Monitoring of Response, Need for IV Antibiotics, Risk of Complication if Not Cared For in Hospital Post Hospital Care: D/C Sales Development Executive Documentation - Plan Summary Plan Summary: See attending physician orders
[2017-04-05] MEDS ORDERED: GLUCAGON,HUMAN RECOMB 1 MG INJ IM PRN (19:17)
[2017-04-05] MEDS ORDERED: DEXTROSE 40% GEL 15 GM TUBE PO PRN ×2 (19:17)
[2017-04-05] MEDS ORDERED: DEXTROSE 50%-WATER 25 GM/50 ML DISP.SYRIN IV PRN ×2 (19:17)
[2017-04-05] MEDS ORDERED: ACETAMINOPHEN 325 MG TABLET PO PRN (19:21)
[2017-04-05] MEDS ORDERED: GUAIFENESIN SYRP 200 MG/10 ML UDC PO PRN (19:22)
[2017-04-05] MEDS ORDERED: (PENDING PHARMACY ID) (Melatonin/Pyridoxine [Melatonin 5 Mg Tablet] 1 TAB) PO PRN (19:23)
[2017-04-05] MEDS ORDERED: BENZONATATE 100 MG CAPSULE PO PRN (19:23)
[2017-04-05 19:58] LABS: PROTHROMBIN TIME 14.3 SEC (11.4-15.4)
[2017-04-05] MEDS: INSULIN LISPRO 100 UNIT/ML 3 ML VIAL SUBCUT PRN ×2 (20:07→22:29)
[2017-04-05] MEDS: NORMAL SALINE 1000 ML 1,000 ML IV PRN (20:27)
[2017-04-05] MEDS: IPRATROPIUM/ALBUTEROL 0.5-2.5 MG/3 ML AMPUL NEB PRN (20:27)
[2017-04-05] MEDS ORDERED: ENOXAPARIN SODIUM INJ 40 MG/0.4 ML DISP.SYRIN SUBCUT ONE (20:30)
--- NOTE | 2017-04-05 20:35 | EKG REPORT ---
SEVERITY:- ABNORMAL ECG - SINUS TACHYCARDIA MULTIFORM VENTRICULAR PREMATURE COMPLEXES PROBABLE LEFT ATRIAL ABNORMALITY : Confirmed by: Zaida Carballo 05-Apr-2017 20:34:39
[2017-04-05] MEDS: METHYLPREDNISOLONE INJ 125 MG/2 ML SDV IV SCH (22:16)
[2017-04-05] MEDS: INSULIN GLARGINE,HUM.REC.ANLOG 1,000 UNIT/10 ML UNIT SUBCUT SCH (22:16)
[2017-04-05] MEDS: CEFEPIME 1 GM/D5W RTU 1 GM/50 ML RTUPB IV SCH (22:16)
[2017-04-05] MEDS: METOPROLOL TARTRATE 25 MG TABLET PO SCH (22:16)
[2017-04-05] MEDS: DOXYCYCLINE HYCLATE 100 MG in DEXTROSE 5%-WATER 250 ML IV SCH (22:33)
[2017-04-06 05:42] LABS: HEMATOCRIT 39.3 % (37.9-51.0); HGB HCT DIFFERENCE -0.3; MEAN CORPUSCULAR HEMOGLOBIN 27.6 pg (27.0-33.4); MEAN CORPUSCULAR HGB CONC 33.1 g/dL (32.0-36.0); MEAN CORPUSCULAR VOLUME 83 fl (80-97); RED BLOOD COUNT 4.72 10^6/uL (4.35-5.55)
[2017-04-06 05:55] LABS: ALANINE AMINOTRANSFERASE 53 U/L (21-72); ALBUMIN 3.9 g/dL (3.5-5.0); ALKALINE PHOSPHATASE 51 U/L (38-126); ANION GAP 13 (5-19); ASPARTATE AMINO TRANSFERASE 34 U/L (17-59); BILIRUBIN,DIRECT 0.6 mg/dL (0.0-0.4); BILIRUBIN,TOTAL 0.6 mg/dL (0.2-1.3); BLOOD UREA NITROGEN 22 mg/dL (7-20); CALCIUM 9.4 mg/dL (8.4-10.2); CARBON DIOXIDE 28 mmol/L (22-30); CHLORIDE 101 mmol/L (98-107); CREATININE RESULT 0.79 mg/dL (0.52-1.25); GLUCOSE 337 mg/dL (75-110); SODIUM 142.4 mmol/L (137-145); TOTAL PROTEIN 6.2 g/dL (6.3-8.2)
[2017-04-06] MEDS: LANSOPRAZOLE 30 MG TAB.RAP.DR PO SCH (05:57)
[2017-04-06] MEDS: METHYLPREDNISOLONE INJ 125 MG/2 ML SDV IV SCH ×3 (05:58→22:17)
[2017-04-06 06:17] LABS: BAND NEUTROPHILS % (MANUAL) 4 % (3-5); BASOPHILS % (MANUAL) 0 % (0-2); EOSINOPHILS % (MANUAL) 0 % (0-6); LYMPHOCYTES % (MANUAL) 20 % (13-45); TOTAL CELLS COUNTED 50
[2017-04-06 06:23] LABS: TOXIC GRANULATION SLIGHT; TOXIC VACUOLATION PRESENT
[2017-04-06 06:24] LABS: ANISOCYTOSIS SLIGHT; OVALOCYTES SLIGHT; POIKILOCYTOSIS SLIGHT
[2017-04-06 06:25] LABS: WHITE BLOOD COUNT 1.6 10^3/uL (4.0-10.5)
[2017-04-06] MEDS: INSULIN LISPRO 100 UNIT/ML 3 ML VIAL SUBCUT PRN ×4 (09:13→22:17)
[2017-04-06] MEDS: BENAZEPRIL HCL 20 MG TABLET PO SCH (09:13)
[2017-04-06] MEDS: DOXYCYCLINE HYCLATE 100 MG in DEXTROSE 5%-WATER 250 ML IV SCH ×2 (09:13→22:17)
[2017-04-06] MEDS: CEFEPIME 1 GM/D5W RTU 1 GM/50 ML RTUPB IV SCH ×2 (09:14→21:17)
[2017-04-06] MEDS: METFORMIN HCL 500 MG TABLET PO SCH ×2 (09:14→18:15)
[2017-04-06] MEDS: TAMSULOSIN HCL 0.4 MG CAP.SR.24H PO SCH (09:14)
[2017-04-06] MEDS: METOPROLOL TARTRATE 25 MG TABLET PO SCH ×2 (09:14→22:17)
[2017-04-06] MEDS: ASPIRIN 81 MG TABLET, ENT COATED PO SCH (09:22)
[2017-04-06] MEDS: ENOXAPARIN SODIUM INJ 40 MG/0.4 ML DISP.SYRIN SUBCUT SCH (09:22)
[2017-04-06] MEDS ORDERED: (PENDING PHARMACY ID) (Benazepril Hcl [Benazepril Hcl] 40 MG) PO SCH (10:00)
[2017-04-06] MEDS ORDERED: INSULIN GLARGINE,HUM.REC.ANLOG 1,000 UNIT/10 ML UNIT SUBCUT SCH (10:00)
[2017-04-06] MEDS ORDERED: (PENDING PHARMACY ID) (Metformin Hcl [Metformin Hcl] 1,000 MG) PO SCH (10:00)
[2017-04-06] MEDS: IPRATROPIUM/ALBUTEROL 0.5-2.5 MG/3 ML AMPUL NEB PRN (16:56)
--- NOTE | 2017-04-06 19:31 | PDOC PROGRESS REPORT ---
Subjective Progress Note for:: 04/06/17 Subjective:: Patient reported some improvement in his breathing. Remain on supplemental oxygen via nasal cannula. No fever or chills. Less coughing and sputum production. No chest pain. Remain on IV Cefepime and Doxycyline coverage. Reason For Visit: EXACERBATED COPD WITH HYPOXEMIA, PROBABLE LOBAR Physical Exam Vital Signs: Temp Pulse Resp BP Pulse Ox 97.5 F 87 16 125/50 L 93 04/06/17 16:43 04/06/17 16:57 04/06/17 16:57 04/06/17 16:43 04/06/17 16:57 Intake & Output 04/05/17 04/06/17 04/07/17 06:59 06:59 06:59 Intake Total 1140 Output Total 300 947 Balance 840 -947 General appearance: PRESENT: mild distress Head exam: PRESENT: atraumatic, normocephalic Eye exam: PRESENT: conjunctiva pink, EOMI, PERRLA. ABSENT: scleral icterus Mouth exam: PRESENT: moist Respiratory exam: PRESENT: decreased breath sounds - at lung bases, rhonchi - minimal expiratory phase. Cardiovascular exam: PRESENT: RRR. ABSENT: diastolic murmur, rubs, systolic murmur Vascular exam: PRESENT: normal capillary refill. ABSENT: pallor GI/Abdominal exam: PRESENT: normal bowel sounds, soft. ABSENT: distended, guarding, mass, organolmegaly, rebound, tenderness Extremities exam: ABSENT: pedal edema Musculoskeletal exam: PRESENT: normal inspection Neurological exam: PRESENT: alert, awake, oriented to person, oriented to place , oriented to time, oriented to situation, CN II-XII grossly intact. ABSENT: motor sensory deficit Psychiatric exam: PRESENT: appropriate affect, normal mood. ABSENT: homicidal ideation, suicidal ideation Skin exam: PRESENT: dry, intact, warm. ABSENT: cyanosis, rash Results Laboratory Results: 04/06/17 04:46 04/06/17 04:46 04/06/17 04/06/17 04:46 04:46 WBC 1.6 L D RBC 4.72 Hgb 13.0 L Hct 39.3 MCV 83 MCH 27.6 MCHC 33.1 RDW 15.0 H Plt Count 78 L Seg Neutrophils % Not Reportable Lymphocytes % Not Reportable Monocytes % Not Reportable Eosinophils % Not Reportable Basophils % Not Reportable Absolute Neutrophils Not Reportable Absolute Lymphocytes Not Reportable Absolute Monocytes Not Reportable Absolute Eosinophils Not Reportable Absolute Basophils Not Reportable Sodium 142.4 Potassium 5.0 Chloride 101 Carbon Dioxide 28 Anion Gap 13 BUN 22 H Creatinine 0.79 Est GFR ( Amer) > 60 Est GFR (Non-Af Amer) > 60 Glucose 337 H Calcium 9.4 Total Bilirubin 0.6 AST 34 ALT 53 Alkaline Phosphatase 51 Total Protein 6.2 L Albumin 3.9 Impressions: Abdomen X-Ray 04/05/17 12:36 IMPRESSION: PROMINENT GASTRIC AIR BUBBLE. THIS COULD BE INCIDENTAL OR COULD BE SECONDARY TO GASTROPARESIS. NO OTHER SIGNIFICANT FINDINGS. Chest X-Ray 04/05/17 12:36 IMPRESSION: CHRONIC INTERSTITIAL SCARRING. FAINT DENSITY IN THE LEFT LOWER LOBE MAY BE DUE TO SCARRING OR ATELECTASIS OR FAINT PNEUMONIA. NO CHANGE FROM THE RECENT STUDY. Assessment & Plan - Diagnosis (1) Left lower lobe pneumonia Qualifiers: Pneumonia type: due to unspecified organism Qualified Code(s): J18.1 - Lobar pneumonia, unspecified organism Is this a current diagnosis for this admission?: Yes (2) COPD exacerbation Is this a current diagnosis for this admission?: Yes (3) Hypoxia Is this a current diagnosis for this admission?: Yes (4) CAD (coronary artery disease) Qualifiers: Coronary Disease-Associated Artery/Lesion type: [place] artery Associated angina: without angina Is this a current diagnosis for this admission?: Yes (5) HTN (hypertension) Qualifiers: Hypertension type: essential hypertension Qualified Code(s): I10 - Essential (primary) hypertension Is this a current diagnosis for this admission?: Yes (6) HLD (hyperlipidemia) Qualifiers: Hyperlipidemia type: unspecified Qualified Code(s): E78.5 - Hyperlipidemia , unspecified Is this a current diagnosis for this admission?: Yes (8) Osteoarthritis Qualifiers: Osteoarthritis location: multiple joints Is this a current diagnosis for this admission?: Yes - Time Time Spent with patient: 25-34 minutes Medications reviewed and adjusted accordingly: Yes Anticipated discharge: Home Within: Other - Inpatient Certification Based on my medical assessment, after consideration of the patient's comorbidities, presenting symptoms, or acuity I expect that the services needed warrant INPATIENT care.: Yes I certify that my determination is in accordance with my understanding of Medicare's requirements for reasonable and necessary INPATIENT services [42 CFR 412.3e].: Yes Medical Necessity: Need Close Monitoring Due to Risk of Patient Decompensation, Need For IV Fluids, Need For Continuous Telemetry Monitoring, Need for IV Antibiotics, Risk of Complication if Not Cared For in Hospital Post Hospital Care: D/C Production Material Coordinator Documentation - Plan Summary Plan Summary: His thrombocytopenia and leukopenia are of concern but may be secondary to acute infection process. Decrease IV Solu Medrol to 80 mg q8 hours. Continue other current medication management. Obtain CBC with diff and CMP in AM.
[2017-04-06] MEDS: NORMAL SALINE 1000 ML 1,000 ML IV PRN (21:20)
[2017-04-06] MEDS: INSULIN GLARGINE,HUM.REC.ANLOG 1,000 UNIT/10 ML UNIT SUBCUT SCH (22:16)
[2017-04-07 05:17] LABS: ABSOLUTE LYMPHOCYTES (AUTO) 0.4 10^3/uL (0.5-4.7); ABSOLUTE MONOCYTES (AUTO) 0.2 10^3/uL (0.1-1.4); ABSOLUTE NEUT (AUTO) 3.2 10^3/uL (1.7-8.2); BASOPHILS % (AUTO) 0.1 % (0-2); HEMATOCRIT 38.8 % (37.9-51.0); HEMOGLOBIN 12.7 g/dL (13.5-17.0); HGB HCT DIFFERENCE -0.7; LYMPHOCYTES % (AUTO) 11.7 % (13-45); MEAN CORPUSCULAR HGB CONC 32.6 g/dL (32.0-36.0); MEAN CORPUSCULAR VOLUME 83 fl (80-97); MONOCYTES % (AUTO) 4.3 % (3-13); RED BLOOD COUNT 4.69 10^6/uL (4.35-5.55); RED CELL DISTRIBUTION WIDTH 14.8 % (11.5-14.0); SEGMENTED NEUTROPHILS % (AUTO) 83.9 % (42-78)
[2017-04-07 05:31] LABS: ALANINE AMINOTRANSFERASE 41 U/L (21-72); ALBUMIN 3.7 g/dL (3.5-5.0); ALKALINE PHOSPHATASE 45 U/L (38-126); ANION GAP 14 (5-19); ASPARTATE AMINO TRANSFERASE 37 U/L (17-59); BILIRUBIN,DIRECT 0.5 mg/dL (0.0-0.4); BILIRUBIN,TOTAL 0.5 mg/dL (0.2-1.3); BLOOD UREA NITROGEN 24 mg/dL (7-20); CALCIUM 9.1 mg/dL (8.4-10.2); CARBON DIOXIDE 25 mmol/L (22-30); CHLORIDE 106 mmol/L (98-107); GLUCOSE 221 mg/dL (75-110); POTASSIUM 4.9 mmol/L (3.6-5.0); TOTAL PROTEIN 6.1 g/dL (6.3-8.2)
[2017-04-07 05:46] LABS: WHITE BLOOD COUNT 3.8 10^3/uL (4.0-10.5)
[2017-04-07] MEDS: LANSOPRAZOLE 30 MG TAB.RAP.DR PO SCH (05:49)
[2017-04-07] MEDS: METHYLPREDNISOLONE INJ 125 MG/2 ML SDV IV SCH (05:49)
[2017-04-07] MEDS: IPRATROPIUM/ALBUTEROL 0.5-2.5 MG/3 ML AMPUL NEB PRN ×2 (09:31→20:16)
[2017-04-07] MEDS: ASPIRIN 81 MG TABLET, ENT COATED PO SCH (11:37)
[2017-04-07] MEDS: TAMSULOSIN HCL 0.4 MG CAP.SR.24H PO SCH (11:38)
[2017-04-07] MEDS: BENAZEPRIL HCL 20 MG TABLET PO SCH (11:38)
[2017-04-07] MEDS: METFORMIN HCL 500 MG TABLET PO SCH ×2 (11:39→19:13)
[2017-04-07] MEDS: METOPROLOL TARTRATE 25 MG TABLET PO SCH ×2 (11:39→22:34)
[2017-04-07] MEDS: CEFEPIME 1 GM/D5W RTU 1 GM/50 ML RTUPB IV SCH ×2 (11:40→20:31)
[2017-04-07] MEDS: INSULIN LISPRO 100 UNIT/ML 3 ML VIAL SUBCUT PRN ×4 (11:41→22:34)
[2017-04-07] MEDS: DOXYCYCLINE HYCLATE 100 MG in DEXTROSE 5%-WATER 250 ML IV SCH ×2 (11:44→22:34)
[2017-04-07] MEDS: ENOXAPARIN SODIUM INJ 40 MG/0.4 ML DISP.SYRIN SUBCUT SCH (11:46)
--- NOTE | 2017-04-07 15:34 | PDOC PROGRESS REPORT ---
Subjective Progress Note for:: 04/07/17 Subjective:: Patient denied any chest and breathing continue to improve. Remain on supplemental oxygen via nasal cannula. No fever or chills. Remain on IV Cefepime and Doxycyline coverage. Reason For Visit: EXACERBATED COPD WITH HYPOXEMIA, PROBABLE LOBAR Physical Exam Vital Signs: Temp Pulse Resp BP Pulse Ox 97.3 F 93 18 129/49 H 96 04/07/17 11:51 04/07/17 11:51 04/07/17 11:51 04/07/17 11:51 04/07/17 11:51 Intake & Output 04/06/17 04/07/17 04/08/17 06:59 06:59 06:59 Intake Total 1140 2340 Output Total 300 1297 Balance 840 1043 Physical Exam: General appearance: PRESENT: mild distress Head exam: PRESENT: atraumatic, normocephalic Eye exam: PRESENT: conjunctiva pink, EOMI, PERRLA. ABSENT: scleral icterus Mouth exam: PRESENT: moist Respiratory exam: PRESENT: decreased breath sounds - at lung bases, rhonchi - minimal expiratory phase. Cardiovascular exam: PRESENT: RRR. ABSENT: diastolic murmur, rubs, systolic murmur Vascular exam: PRESENT: normal capillary refill. ABSENT: pallor GI/Abdominal exam: PRESENT: normal bowel sounds, soft. ABSENT: distended, guarding, mass, organomegaly, rebound, tenderness Extremities exam: ABSENT: pedal edema Musculoskeletal exam: PRESENT: normal inspection Neurological exam: PRESENT: alert, awake, oriented to person, oriented to place , oriented to time, oriented to situation, CN II-XII grossly intact. ABSENT: motor sensory deficit Psychiatric exam: PRESENT: appropriate affect, normal mood. ABSENT: homicidal ideation, suicidal ideation Skin exam: PRESENT: dry, intact, warm. ABSENT: cyanosis, rash Results Laboratory Results: 04/07/17 04:43 04/07/17 04:43 04/07/17 04/07/17 04:43 04:43 WBC 3.8 L D RBC 4.69 Hgb 12.7 L Hct 38.8 MCV 83 MCH 27.0 MCHC 32.6 RDW 14.8 H Plt Count 78 L Seg Neutrophils % 83.9 H Lymphocytes % 11.7 L Monocytes % 4.3 Eosinophils % 0.0 Basophils % 0.1 Absolute Neutrophils 3.2 Absolute Lymphocytes 0.4 L Absolute Monocytes 0.2 Absolute Eosinophils 0.0 Absolute Basophils 0.0 Sodium 145.0 Potassium 4.9 Chloride 106 Carbon Dioxide 25 Anion Gap 14 BUN 24 H Creatinine 0.70 Est GFR ( Amer) > 60 Est GFR (Non-Af Amer) > 60 Glucose 221 H Calcium 9.1 Total Bilirubin 0.5 AST 37 ALT 41 Alkaline Phosphatase 45 Total Protein 6.1 L Albumin 3.7 Impressions: Abdomen X-Ray 04/05/17 12:36 IMPRESSION: PROMINENT GASTRIC AIR BUBBLE. THIS COULD BE INCIDENTAL OR COULD BE SECONDARY TO GASTROPARESIS. NO OTHER SIGNIFICANT FINDINGS. Chest X-Ray 04/05/17 12:36 IMPRESSION: CHRONIC INTERSTITIAL SCARRING. FAINT DENSITY IN THE LEFT LOWER LOBE MAY BE DUE TO SCARRING OR ATELECTASIS OR FAINT PNEUMONIA. NO CHANGE FROM THE RECENT STUDY. Assessment & Plan - Diagnosis (1) Left lower lobe pneumonia Qualifiers: Pneumonia type: due to unspecified organism Qualified Code(s): J18.1 - Lobar pneumonia, unspecified organism Is this a current diagnosis for this admission?: Yes (2) COPD exacerbation Is this a current diagnosis for this admission?: Yes (3) Hypoxia Is this a current diagnosis for this admission?: Yes (4) CAD (coronary artery disease) Qualifiers: Coronary Disease-Associated Artery/Lesion type: [place] artery Associated angina: without angina Is this a current diagnosis for this admission?: Yes (5) HTN (hypertension) Qualifiers: Hypertension type: essential hypertension Qualified Code(s): I10 - Essential (primary) hypertension Is this a current diagnosis for this admission?: Yes (6) HLD (hyperlipidemia) Qualifiers: Hyperlipidemia type: unspecified Qualified Code(s): E78.5 - Hyperlipidemia , unspecified Is this a current diagnosis for this admission?: Yes (8) Osteoarthritis Qualifiers: Osteoarthritis location: multiple joints Is this a current diagnosis for this admission?: Yes - Time Time Spent with patient: 25-34 minutes Medications reviewed and adjusted accordingly: Yes Anticipated discharge: Home Within: Other - Inpatient Certification Based on my medical assessment, after consideration of the patient's comorbidities, presenting symptoms, or acuity I expect that the services needed warrant INPATIENT care.: Yes I certify that my determination is in accordance with my understanding of Medicare's requirements for reasonable and necessary INPATIENT services [42 CFR 412.3e].: Yes Medical Necessity: Need Close Monitoring Due to Risk of Patient Decompensation, Need For IV Fluids, Need For Continuous Telemetry Monitoring, Need for Nebulizer Therapy and Monitoring of Response, Need for IV Antibiotics, Risk of Complication if Not Cared For in Hospital Post Hospital Care: D/C Hybrid Car Mechanic Documentation - Plan Summary Plan Summary: Continue IV Cefepime and Doxycycline coverage.Decrease IV Solu Medrol to 60 mg q 8 hours.
[2017-04-07] MEDS: NORMAL SALINE 1000 ML 1,000 ML IV PRN (16:18)
[2017-04-07] MEDS ORDERED: METHYLPREDNISOLONE INJ 125 MG/2 ML SDV IV ONE (16:30)
[2017-04-07] MEDS ORDERED: METHYLPREDNISOLONE INJ 125 MG/2 ML SDV IV SCH (22:00)
[2017-04-07] MEDS: INSULIN GLARGINE,HUM.REC.ANLOG 1,000 UNIT/10 ML UNIT SUBCUT SCH (22:33)
[2017-04-07] MEDS: METHYLPREDNISOLONE INJ 40 MG/1 ML SDV IV SCH (22:34)
[2017-04-08 05:36] LABS: ABSOLUTE LYMPHOCYTES (AUTO) 0.4 10^3/uL (0.5-4.7); ABSOLUTE MONOCYTES (AUTO) 0.2 10^3/uL (0.1-1.4); ABSOLUTE NEUT (AUTO) 4.5 10^3/uL (1.7-8.2); BASOPHILS % (AUTO) 0.1 % (0-2); HEMATOCRIT 39.5 % (37.9-51.0); HEMOGLOBIN 13.1 g/dL (13.5-17.0); HGB HCT DIFFERENCE -0.2; LYMPHOCYTES % (AUTO) 7.6 % (13-45); MEAN CORPUSCULAR HEMOGLOBIN 27.3 pg (27.0-33.4); MEAN CORPUSCULAR HGB CONC 33.1 g/dL (32.0-36.0); MEAN CORPUSCULAR VOLUME 83 fl (80-97); MONOCYTES % (AUTO) 3.8 % (3-13); RED BLOOD COUNT 4.78 10^6/uL (4.35-5.55); RED CELL DISTRIBUTION WIDTH 14.8 % (11.5-14.0); SEGMENTED NEUTROPHILS % (AUTO) 88.5 % (42-78)
[2017-04-08] MEDS: METHYLPREDNISOLONE INJ 40 MG/1 ML SDV IV SCH (06:58)
[2017-04-08] MEDS: LANSOPRAZOLE 30 MG TAB.RAP.DR PO SCH (06:58)
[2017-04-08] MEDS: IPRATROPIUM/ALBUTEROL 0.5-2.5 MG/3 ML AMPUL NEB PRN ×2 (09:06→22:53)
[2017-04-08] MEDS: CEFEPIME 1 GM/D5W RTU 1 GM/50 ML RTUPB IV SCH ×2 (09:08→22:14)
[2017-04-08] MEDS: INSULIN LISPRO 100 UNIT/ML 3 ML VIAL SUBCUT PRN ×4 (09:08→22:25)
[2017-04-08] MEDS: DOXYCYCLINE HYCLATE 100 MG in DEXTROSE 5%-WATER 250 ML IV SCH ×2 (11:07→22:15)
[2017-04-08] MEDS: NORMAL SALINE 1000 ML 1,000 ML IV PRN (11:10)
[2017-04-08] MEDS: BENAZEPRIL HCL 20 MG TABLET PO SCH (11:10)
[2017-04-08] MEDS: METOPROLOL TARTRATE 25 MG TABLET PO SCH ×2 (11:11→22:14)
[2017-04-08] MEDS: METFORMIN HCL 500 MG TABLET PO SCH ×2 (11:11→17:51)
[2017-04-08] MEDS: TAMSULOSIN HCL 0.4 MG CAP.SR.24H PO SCH (11:11)
[2017-04-08] MEDS: ASPIRIN 81 MG TABLET, ENT COATED PO SCH (11:13)
[2017-04-08] MEDS: ENOXAPARIN SODIUM INJ 40 MG/0.4 ML DISP.SYRIN SUBCUT SCH (11:13)
--- NOTE | 2017-04-08 11:16 | PDOC PROGRESS REPORT ---
Subjective Progress Note for:: 04/08/17 Subjective:: OOB in chair. Reported improving breathing efforts. No significant coughing or chest pain. No fever or chills. No nausea, vomiting, or abdominal pain. Reason For Visit: EXACERBATED COPD WITH HYPOXEMIA, PROBABLE LOBAR Physical Exam Vital Signs: Temp Pulse Resp BP Pulse Ox 97.4 F 65 20 161/59 H 94 04/08/17 07:12 04/08/17 09:06 04/08/17 09:06 04/08/17 07:12 04/08/17 09:06 Intake & Output 04/07/17 04/08/17 04/09/17 06:59 06:59 06:59 Intake Total 2340 3856 Output Total 1297 Balance 1043 3856 Physical Exam: General appearance: PRESENT: mild distress Head exam: PRESENT: atraumatic, normocephalic Eye exam: PRESENT: conjunctiva pink, EOMI, PERRLA. ABSENT: scleral icterus Mouth exam: PRESENT: moist Respiratory exam: PRESENT: decreased breath sounds - at lung bases, rhonchi - minimal expiratory phase. Cardiovascular exam: PRESENT: RRR. ABSENT: diastolic murmur, rubs, systolic murmur Vascular exam: PRESENT: normal capillary refill. ABSENT: pallor GI/Abdominal exam: PRESENT: normal bowel sounds, soft. ABSENT: distended, guarding, mass, organomegaly, rebound, tenderness Extremities exam: ABSENT: pedal edema Musculoskeletal exam: PRESENT: normal inspection Neurological exam: PRESENT: alert, awake, oriented to person, oriented to place , oriented to time, oriented to situation, CN II-XII grossly intact. ABSENT: motor sensory deficit Psychiatric exam: PRESENT: appropriate affect, normal mood. ABSENT: homicidal ideation, suicidal ideation Skin exam: PRESENT: dry, intact, warm. ABSENT: cyanosis, rash Results Laboratory Results: 04/08/17 04:36 04/07/17 04:43 04/08/17 04:36 WBC 5.0 RBC 4.78 Hgb 13.1 L Hct 39.5 MCV 83 MCH 27.3 MCHC 33.1 RDW 14.8 H Plt Count 84 L Seg Neutrophils % 88.5 H Lymphocytes % 7.6 L Monocytes % 3.8 Eosinophils % 0.0 Basophils % 0.1 Absolute Neutrophils 4.5 Absolute Lymphocytes 0.4 L Absolute Monocytes 0.2 Absolute Eosinophils 0.0 Absolute Basophils 0.0 Impressions: Abdomen X-Ray 04/05/17 12:36 IMPRESSION: PROMINENT GASTRIC AIR BUBBLE. THIS COULD BE INCIDENTAL OR COULD BE SECONDARY TO GASTROPARESIS. NO OTHER SIGNIFICANT FINDINGS. Chest X-Ray 04/05/17 12:36 IMPRESSION: CHRONIC INTERSTITIAL SCARRING. FAINT DENSITY IN THE LEFT LOWER LOBE MAY BE DUE TO SCARRING OR ATELECTASIS OR FAINT PNEUMONIA. NO CHANGE FROM THE RECENT STUDY. Assessment & Plan - Diagnosis (1) Left lower lobe pneumonia Qualifiers: Pneumonia type: due to unspecified organism Qualified Code(s): J18.1 - Lobar pneumonia, unspecified organism Is this a current diagnosis for this admission?: Yes (2) COPD exacerbation Is this a current diagnosis for this admission?: Yes (3) Hypoxia Is this a current diagnosis for this admission?: Yes (4) CAD (coronary artery disease) Qualifiers: Coronary Disease-Associated Artery/Lesion type: [place] artery Associated angina: without angina Is this a current diagnosis for this admission?: Yes (5) HTN (hypertension) Qualifiers: Hypertension type: essential hypertension Qualified Code(s): I10 - Essential (primary) hypertension Is this a current diagnosis for this admission?: Yes (6) HLD (hyperlipidemia) Qualifiers: Hyperlipidemia type: unspecified Qualified Code(s): E78.5 - Hyperlipidemia , unspecified Is this a current diagnosis for this admission?: Yes (8) Osteoarthritis Qualifiers: Osteoarthritis location: multiple joints Is this a current diagnosis for this admission?: Yes - Time Time Spent with patient: 25-34 minutes Medications reviewed and adjusted accordingly: Yes Anticipated discharge: Home Within: within 48 hours - Inpatient Certification Based on my medical assessment, after consideration of the patient's comorbidities, presenting symptoms, or acuity I expect that the services needed warrant INPATIENT care.: Yes I certify that my determination is in accordance with my understanding of Medicare's requirements for reasonable and necessary INPATIENT services [42 CFR 412.3e].: Yes Medical Necessity: Need Close Monitoring Due to Risk of Patient Decompensation, Need For IV Fluids, Need For Continuous Telemetry Monitoring, Need for IV Antibiotics, Risk of Complication if Not Cared For in Hospital Post Hospital Care: D/C Board Winder Documentation - Plan Summary Plan Summary: Continue IV Doxycycline and Cefepime coverage. D/C Solu Medrol. Start on Prednisone 40 mg po daily with intent to taper off over next couple of days.
[2017-04-08] MEDS ORDERED: PREDNISONE 20 MG TABLET PO ONE (12:00)
[2017-04-08] MEDS: INSULIN GLARGINE,HUM.REC.ANLOG 1,000 UNIT/10 ML UNIT SUBCUT SCH (22:23)
[2017-04-09] MEDS: LANSOPRAZOLE 30 MG TAB.RAP.DR PO SCH (06:22)
[2017-04-09 07:11] LABS: ABSOLUTE LYMPHOCYTES (AUTO) 0.8 10^3/uL (0.5-4.7); ABSOLUTE MONOCYTES (AUTO) 0.3 10^3/uL (0.1-1.4); ABSOLUTE NEUT (AUTO) 2.5 10^3/uL (1.7-8.2); BASOPHILS % (AUTO) 0.1 % (0-2); EOSINOPHILS % (AUTO) 0.1 % (0-6); HEMATOCRIT 35.9 % (37.9-51.0); HEMOGLOBIN 12.3 g/dL (13.5-17.0); LYMPHOCYTES % (AUTO) 22.4 % (13-45); MEAN CORPUSCULAR HEMOGLOBIN 28.1 pg (27.0-33.4); MEAN CORPUSCULAR HGB CONC 34.3 g/dL (32.0-36.0); MEAN CORPUSCULAR VOLUME 82 fl (80-97); MONOCYTES % (AUTO) 7.7 % (3-13); RED BLOOD COUNT 4.39 10^6/uL (4.35-5.55); RED CELL DISTRIBUTION WIDTH 14.5 % (11.5-14.0); SEGMENTED NEUTROPHILS % (AUTO) 69.7 % (42-78); WHITE BLOOD COUNT 3.6 10^3/uL (4.0-10.5)
[2017-04-09] MEDS: NORMAL SALINE 1000 ML 1,000 ML IV PRN (07:43)
[2017-04-09] MEDS: INSULIN LISPRO 100 UNIT/ML 3 ML VIAL SUBCUT PRN ×4 (07:43→22:19)
[2017-04-09] MEDS: IPRATROPIUM/ALBUTEROL 0.5-2.5 MG/3 ML AMPUL NEB PRN ×2 (09:18→21:40)
[2017-04-09] MEDS: ENOXAPARIN SODIUM INJ 40 MG/0.4 ML DISP.SYRIN SUBCUT SCH (09:49)
[2017-04-09] MEDS: BENAZEPRIL HCL 20 MG TABLET PO SCH (09:56)
[2017-04-09] MEDS: ASPIRIN 81 MG TABLET, ENT COATED PO SCH (09:56)
[2017-04-09] MEDS: TAMSULOSIN HCL 0.4 MG CAP.SR.24H PO SCH (09:57)
[2017-04-09] MEDS: METOPROLOL TARTRATE 25 MG TABLET PO SCH ×2 (09:57→22:19)
[2017-04-09] MEDS: CEFEPIME 1 GM/D5W RTU 1 GM/50 ML RTUPB IV SCH ×2 (09:58→22:18)
[2017-04-09] MEDS: METFORMIN HCL 500 MG TABLET PO SCH ×2 (09:58→17:03)
[2017-04-09] MEDS ORDERED: PREDNISONE 20 MG TABLET PO SCH (10:00)
[2017-04-09] MEDS: DOXYCYCLINE HYCLATE 100 MG in DEXTROSE 5%-WATER 250 ML IV SCH (10:56)
--- NOTE | 2017-04-09 11:32 | PDOC PROGRESS REPORT ---
Subjective Progress Note for:: 04/09/17 Subjective:: No difficulty with breathing. No chest pain. No fever or chills. No nausea, vomiting, or abdominal pain. Reason For Visit: EXACERBATED COPD WITH HYPOXEMIA, PROBABLE LOBAR Physical Exam Vital Signs: Temp Pulse Resp BP Pulse Ox 97.4 F 76 20 153/62 H 96 04/09/17 08:00 04/09/17 09:18 04/09/17 09:18 04/09/17 08:00 04/09/17 09:18 Intake & Output 04/08/17 04/09/17 04/10/17 06:59 06:59 06:59 Intake Total 3856 2865 Balance 3856 2865 Physical Exam: General appearance: PRESENT: mild distress Head exam: PRESENT: atraumatic, normocephalic Eye exam: PRESENT: conjunctiva pink, EOMI, PERRLA. ABSENT: scleral icterus Mouth exam: PRESENT: moist Respiratory exam: PRESENT: decreased breath sounds - at lung bases. Cardiovascular exam: PRESENT: RRR. ABSENT: diastolic murmur, rubs, systolic murmur Vascular exam: PRESENT: normal capillary refill. ABSENT: pallor GI/Abdominal exam: PRESENT: normal bowel sounds, soft. ABSENT: distended, guarding, mass, organomegaly, rebound, tenderness Extremities exam: ABSENT: pedal edema Musculoskeletal exam: PRESENT: normal inspection Neurological exam: PRESENT: alert, awake, oriented to person, oriented to place , oriented to time, oriented to situation, CN II-XII grossly intact. ABSENT: motor sensory deficit Psychiatric exam: PRESENT: appropriate affect, normal mood. ABSENT: homicidal ideation, suicidal ideation Skin exam: PRESENT: dry, intact, warm. ABSENT: cyanosis, rash Results Laboratory Results: 04/09/17 06:39 04/07/17 04:43 04/09/17 06:39 WBC 3.6 L RBC 4.39 Hgb 12.3 L Hct 35.9 L MCV 82 MCH 28.1 MCHC 34.3 RDW 14.5 H Plt Count 80 L Seg Neutrophils % 69.7 Lymphocytes % 22.4 Monocytes % 7.7 Eosinophils % 0.1 Basophils % 0.1 Absolute Neutrophils 2.5 Absolute Lymphocytes 0.8 Absolute Monocytes 0.3 Absolute Eosinophils 0.0 Absolute Basophils 0.0 Impressions: Abdomen X-Ray 04/05/17 12:36 IMPRESSION: PROMINENT GASTRIC AIR BUBBLE. THIS COULD BE INCIDENTAL OR COULD BE SECONDARY TO GASTROPARESIS. NO OTHER SIGNIFICANT FINDINGS. Chest X-Ray 04/05/17 12:36 IMPRESSION: CHRONIC INTERSTITIAL SCARRING. FAINT DENSITY IN THE LEFT LOWER LOBE MAY BE DUE TO SCARRING OR ATELECTASIS OR FAINT PNEUMONIA. NO CHANGE FROM THE RECENT STUDY. Assessment & Plan - Diagnosis (1) Left lower lobe pneumonia Qualifiers: Pneumonia type: due to unspecified organism Qualified Code(s): J18.1 - Lobar pneumonia, unspecified organism Is this a current diagnosis for this admission?: Yes (2) COPD exacerbation Is this a current diagnosis for this admission?: Yes (3) Hypoxia Is this a current diagnosis for this admission?: Yes (4) CAD (coronary artery disease) Qualifiers: Coronary Disease-Associated Artery/Lesion type: redding artery Associated angina: without angina Is this a current diagnosis for this admission?: Yes (5) HTN (hypertension) Qualifiers: Hypertension type: essential hypertension Qualified Code(s): I10 - Essential (primary) hypertension Is this a current diagnosis for this admission?: Yes (6) HLD (hyperlipidemia) Qualifiers: Hyperlipidemia type: unspecified Qualified Code(s): E78.5 - Hyperlipidemia , unspecified Is this a current diagnosis for this admission?: Yes (8) Osteoarthritis Qualifiers: Osteoarthritis location: multiple joints Is this a current diagnosis for this admission?: Yes - Time Time Spent with patient: 25-34 minutes Medications reviewed and adjusted accordingly: Yes Anticipated discharge: Home - Inpatient Certification Based on my medical assessment, after consideration of the patient's comorbidities, presenting symptoms, or acuity I expect that the services needed warrant INPATIENT care.: Yes I certify that my determination is in accordance with my understanding of Medicare's requirements for reasonable and necessary INPATIENT services [42 CFR 412.3e].: Yes Medical Necessity: Need Close Monitoring Due to Risk of Patient Decompensation, Need For IV Fluids, Need For Continuous Telemetry Monitoring, Need for IV Antibiotics, Risk of Complication if Not Cared For in Hospital Post Hospital Care: D/C Belt Changer Documentation - Plan Summary Plan Summary: See attending physician orders
[2017-04-09] MEDS: INSULIN GLARGINE,HUM.REC.ANLOG 1,000 UNIT/10 ML UNIT SUBCUT SCH (22:19)
[2017-04-09] MEDS: DOXYCYCLINE HYCLATE 100 MG TABLET PO SCH (22:20)
[2017-04-10] MEDS: LANSOPRAZOLE 30 MG TAB.RAP.DR PO SCH (06:30)
[2017-04-10] MEDS: IPRATROPIUM/ALBUTEROL 0.5-2.5 MG/3 ML AMPUL NEB PRN (09:56)
[2017-04-10] MEDS ORDERED: PREDNISONE 20 MG TABLET PO SCH (10:00)
[2017-04-10] MEDS: METFORMIN HCL 500 MG TABLET PO SCH (10:30)
[2017-04-10] MEDS: METOPROLOL TARTRATE 25 MG TABLET PO SCH (10:30)
[2017-04-10] MEDS: TAMSULOSIN HCL 0.4 MG CAP.SR.24H PO SCH (10:30)
[2017-04-10] MEDS: ASPIRIN 81 MG TABLET, ENT COATED PO SCH (10:30)
[2017-04-10] MEDS: BENAZEPRIL HCL 20 MG TABLET PO SCH (10:30)
[2017-04-10] MEDS: DOXYCYCLINE HYCLATE 100 MG TABLET PO SCH (10:30)
[2017-04-10] MEDS: ENOXAPARIN SODIUM INJ 40 MG/0.4 ML DISP.SYRIN SUBCUT SCH (10:33)
[2017-04-10] MEDS: CEFEPIME 1 GM/D5W RTU 1 GM/50 ML RTUPB IV SCH (10:40)
--- NOTE | 2017-04-10 12:20 | PDOC DISCHARGE SUMMARY ---
General - Admit/Disc Date/PCP Admission Date/Primary Care Provider: 04/05/17 18:00 KELSEY AGUIRRE Discharge Date: 04/10/17 - Discharge Diagnosis (1) Left lower lobe pneumonia Is this a current diagnosis for this admission?: Yes (2) COPD exacerbation Is this a current diagnosis for this admission?: Yes (3) Hypoxia Is this a current diagnosis for this admission?: Yes (4) CAD (coronary artery disease) Is this a current diagnosis for this admission?: Yes (5) HTN (hypertension) Is this a current diagnosis for this admission?: Yes (6) HLD (hyperlipidemia) Is this a current diagnosis for this admission?: Yes (8) Osteoarthritis Is this a current diagnosis for this admission?: Yes - Additional Information Resuscitation Status: Full Code Discharge Diet: Cardiac, Diabetic Discharge Activity: Activity As Tolerated Home Medications: Aspirin [Ecotrin 81 mg EC Tablet] 81 mg PO DAILY 04/15/12 Metoprolol Tartrate [Lopressor 25 mg Tablet] 25 mg PO Q12 04/15/12 Tamsulosin HCl [Flomax 0.4 mg Cap.sr] 0.4 mg PO DAILY #7 cap.sr.24h 04/15/12 Arformoterol Tartrate [Brovana Inhalation Solution 15 mcg/2 mL] 15 mcg IH RTBID 03/12/14 Budesonide [Pulmicort Neb 1 mg/2 mL Ampule] 1 dose IH RTBID 03/12/14 Albuterol Sulfate [Ventolin Hfa] 2 puff IH Q4HP PRN 10/04/16 Benazepril HCl 40 mg PO DAILY 10/04/16 Insulin Glargine,Hum.rec.anlog [Lantus] 52 unit SQ QHS 10/04/16 Insulin Lispro [Humalog] 100 unit SQ ACP PRN 10/04/16 Melatonin/Pyridoxine [Melatonin 5 mg Tablet] 1 tab PO QHS 04/05/17 Metformin HCl 1,000 mg PO Q12 04/05/17 Cefdinir 300 mg PO BID #14 capsule 04/10/17 Doxycycline Hyclate [Vibramycin 100 mg Tablet] 100 mg PO Q12 #14 tablet Prednisone 5 mg PO ASDIR #21 tablet 04/10/17 History of Present Illness History of Present Illness: JOHN PAUL SWEENEY is a 72 year old male known to my practice who was seen at the ED a day ago for similar presentation ad diagnosed with probable left lower lobe pneumonia. He was discharge home on Levofloxacin but he claimed intolerant of the medication and did not fill the prescription. He represented to the Ed with worsening of his shortness of breath, associated fever, productive cough, chest pain, and intermittent diaphoresis necessitating need for change clothes. His evaluation in the ED was significant for associated exertional hypoxemia. Patient has end stage COPD on continuous supplemental oxygen via nasal cannula. He denied associated headache, sore throat, palpitations, syncope, abdominal pain, nausea, vomiting, diarrhea, constipation, urinary retention, dysuria, hematuria, or rash. Other morbidities include Diabetes Mellitus, Hypertension, CAD s/p CABG, Hyperlipidemia, BPH, and arthritis. Hospital Course Hospital Course: Patient responded to IV Solu Medrol, nebulizer therapy as well as IV antibiotic therapy. He has transition to oral tapering dose of Prednisone and oral antibiotic including Doxycycline and Cefdinir. He remain afebrile x 48 hours. Blood culture is no growth to date. He will remain on all his preadmission medications. He will be dicahrge home today and follow up in the office as instructed upon discharge. Physical Exam Vital Signs: Temp Pulse Resp BP Pulse Ox 97.4 F 49 L 22 H 161/56 H 98 04/10/17 07:18 04/10/17 09:56 04/10/17 09:56 04/10/17 07:18 04/10/17 09:56 Intake & Output 04/09/17 04/10/17 04/11/17 06:59 06:59 06:59 Intake Total 2865 3833 Balance 2865 3833 Physical Exam: General appearance: PRESENT: mild distress Head exam: PRESENT: atraumatic, normocephalic Eye exam: PRESENT: conjunctiva pink, EOMI, PERRLA. ABSENT: scleral icterus Mouth exam: PRESENT: moist Respiratory exam: PRESENT: decreased breath sounds - at lung bases. Cardiovascular exam: PRESENT: RRR. ABSENT: diastolic murmur, rubs, systolic murmur Vascular exam: PRESENT: normal capillary refill. ABSENT: pallor GI/Abdominal exam: PRESENT: normal bowel sounds, soft. ABSENT: distended, guarding, mass, organomegaly, rebound, tenderness Extremities exam: ABSENT: pedal edema Musculoskeletal exam: PRESENT: normal inspection Neurological exam: PRESENT: alert, awake, oriented to person, oriented to place , oriented to time, oriented to situation, CN II-XII grossly intact. ABSENT: motor sensory deficit Psychiatric exam: PRESENT: appropriate affect, normal mood. ABSENT: homicidal ideation, suicidal ideation Skin exam: PRESENT: dry, intact, warm. ABSENT: cyanosis, rash Results Laboratory Results: 04/09/17 06:39 04/07/17 04:43 Impressions: Abdomen X-Ray 04/05/17 12:36 IMPRESSION: PROMINENT GASTRIC AIR BUBBLE. THIS COULD BE INCIDENTAL OR COULD BE SECONDARY TO GASTROPARESIS. NO OTHER SIGNIFICANT FINDINGS. Chest X-Ray 04/05/17 12:36 IMPRESSION: CHRONIC INTERSTITIAL SCARRING. FAINT DENSITY IN THE LEFT LOWER LOBE MAY BE DUE TO SCARRING OR ATELECTASIS OR FAINT PNEUMONIA. NO CHANGE FROM THE RECENT STUDY. Qualifiers PATEINT BEING DISCHARGED WITH ANY OF THE FOLLOWING DIAGNOSIS?: No Plan Discharge Plan: Discharge home today. Follow up in the office as instructed upon discharge.
[2017-04-10 13:22] VITALS: BP 153/62
== END 2017-04-10 14:20 | disposition home or self-care (01) | DRG 194 ==
LOC: ER 12:17 → EH 18:00 → 4N 21:20
PROVIDERS: ADMIT Internal Medicine Geriatric Medicine; ATTEND Internal Medicine Geriatric Medicine
DX: J18.1 Lobar pneumonia, unspecified organism (principal); J44.1 Chronic obstructive pulmonary disease with (acute) exacerbation; I10 Essential (primary) hypertension; I25.10 Atherosclerotic heart disease of native coronary artery without angina pectoris; E11.9 Type 2 diabetes mellitus without complications; E78.5 Hyperlipidemia, unspecified; R09.02 Hypoxemia; I25.2 Old myocardial infarction; Z99.81 Dependence on supplemental oxygen; Z95.1 Presence of aortocoronary bypass graft; Z79.82 Long term (current) use of aspirin; Z79.4 Long term (current) use of insulin; Z79.51 Long term (current) use of inhaled steroids; Z79.899 Other long term (current) drug therapy
CPT/HCPCS: 36415; 71020; 74020; 80053; 81001; 82550; 82803; 82962; 84484; 85025; 85379; 85610; 85730; 87040; 87804; 93005; 93010; 94640; 96365; 96375; 99285; J0692; J1815; J2920; J2930; J3475; J3490; J7030; J7060; J7512; J7620

== ENCOUNTER → 2017-09-06 | Outpatient (CLI) | payer MEDICARE, OTHER ==
--- NOTE | 2017-09-06 16:13 | RADIOLOGY REPORT (SQ) ---
EXAM DESCRIPTION: CHEST PA/LATERAL COMPLETED DATE/TIME: 09/06/2017 3:59 pm REASON FOR STUDY: COPD COMPARISON: 04/05/2017 EXAM PARAMETERS: NUMBER OF VIEWS: two views TECHNIQUE: Digital Frontal and Lateral radiographic views of the chest acquired. RADIATION DOSE: NA LIMITATIONS: none FINDINGS: LUNGS AND PLEURA: Stable areas of scarring in both lower lobes, left greater than right. No effusions. MEDIASTINUM AND HILAR STRUCTURES: No masses or contour abnormalities. HEART AND VASCULAR STRUCTURES: Stable heart size. BONES: No acute findings. HARDWARE: CABG. OTHER: No other significant finding. IMPRESSION: No acute findings in the chest. TECHNICAL DOCUMENTATION: JOB ID: [id number] [employer]- All Rights Reserved Reading location - IP/workstation name: [facility]
== END ==
LOC: OD 15:30
PROVIDERS: ATTEND Physician Assistant
DX: J44.9 Chronic obstructive pulmonary disease, unspecified (principal)
CPT/HCPCS: 71046

== ENCOUNTER → 2017-09-19 | Outpatient (CLI) | payer MEDICARE, OTHER ==
--- NOTE | 2017-09-19 09:32 | RADIOLOGY REPORT (SQ) ---
EXAM DESCRIPTION: U/S ABDOMEN COMPLETE W/DOPPLER COMPLETED DATE/TIME: 09/19/2017 9:13 am REASON FOR STUDY: SPENOMEGALY (R16.1) R16.1 SPLENOMEGALY, NOT ELSEWHERE CLASSIFIED COMPARISON: PET-CT 03/20/2016 CT chest 01/19/2016 TECHNIQUE: Dynamic and static grayscale images acquired of the abdomen and recorded on PACS. Additio nal selected color Doppler and spectral images recorded. LIMITATIONS: Bowel gas FINDINGS: PANCREAS: Midline pancreas unremarkable LIVER: No masses. Echotexture normal. LIVER VASCULATURE: Normal directional flow of the main portal vein and hepatic veins. GALLBLADDER: Removed in 2005 ULTRASOUND-DETECTED PATRICK'S SIGN: Not applicable INTRAHEPATIC DUCTS AND COMMON DUCT: CBD and intrahepatic ducts normal caliber. No filling defects. INFERIOR VENA CAVA: Normal flow. AORTA: No upper or mid abdominal aortic aneurysm. Abdominal aorta above the iliac bifurcation is dif ficult to visualize due to bowel gas RIGHT KIDNEY: Normal size. Normal echogenicity. No solid or suspicious masses. No hydronephros is. No calcifications. LEFT KIDNEY: Normal size. Normal echogenicity. No solid or suspicious masses. No hydronephrosi s. No calcifications. SPLEEN: 16.6 cm in size. This is similar compared to CT exams from 2016 PERITONEAL AND PLEURAL SPACES: No ascites or effusions. OTHER: No other significant finding. IMPRESSION: Post cholecystectomy Spleen 16.6 cm in length, similar compared to exams from 2016 TECHNICAL DOCUMENTATION: JOB ID: [id number] [employer]- All Rights Reserved Reading location - IP/workstation name: [email or web address]
== END ==
LOC: RAD 09-18 10:49
PROVIDERS: ATTEND Internal Medicine Medical Oncology
DX: R16.1 Splenomegaly, not elsewhere classified (principal)
CPT/HCPCS: 76700; 93976

== ENCOUNTER → 2017-10-05 | Outpatient (CLI) | payer MEDICARE, OTHER ==
--- NOTE | 2017-10-05 15:21 | RADIOLOGY REPORT (SQ) ---
EXAM DESCRIPTION: CT LUNG CANCER SCREENING COMPLETED DATE/TIME: 10/05/2017 3:02 pm REASON FOR STUDY: Z87.891 PERSONAL HISTORY OF NICOTINE DEPENDENCE Z87.891 PERSONAL HISTORY OF NICOT INE DEPENDENCE Has the patient had a Chest CT scan within the past year? Yes. Was the patient offered tobacco cessation counseling? No. Was the patient engaged in shared decision making for this test? Yes. Does the patient have signs or symptoms of Lung Cancer? No. Is the patient a smoker? No. How many packs per year? 1,095. How many years since quitting smoking? 15 years. Patients age: 72. COMPARISON: 01/19/2016. TECHNIQUE: Low Dose CT scan performed of the chest without intravenous contrast for purposes of scre ening for lung cancer. Images reviewed with lung, soft tissue and bone windows. Reconstructed coron al and sagittal MPR images reviewed. All images stored on PACS. All CT scanners at this facility use dose modulation, iterative reconstruction, and/or weight based d osing when appropriate to reduce radiation dose to as low as reasonably achievable (ALARA). [facility]: Dose Right [facility]: CareDose [facility]: Dose Right [facility]: Teradose 4D [facility]: Accumulate RADIATION DOSE: mGy. . LIMITATIONS: None FINDINGS: LUNGS AND PLEURA: No masses or nodules. No pleural effusions or calcifications. No pne umothorax. Mild scarring. HILAR AND MEDIASTINAL STRUCTURES: No identified masses. No abnormal nodes. HEART AND VASCULAR STRUCTURES: No aortic aneurysm. No pericardial effusion. No cardiac devices. CORONARY ARTERY CALCIFICATIONS: Not Applicable. Previous coronary bypass. UPPER ABDOMEN, THYROID, BONES, OTHER SOFT TISSUES: No significant findings. IMPRESSION: NO SIGNIFICANT FINDING IN THE LUNGS ON NON-CONTRASTED CHEST CT. NO OTHER CLINICALLY SIGNIFICANT/POTENTIALLY CLINICALLY SIGNIFICANT FINDINGS LUNGRADS: LUNGRADS: 1 NEGATIVE. NO NODULES, OR DEFINITELY BENIGN NODULES MODIFIER: NONE RECOMMENDATION: Continue annual screening with LDCT in 12 months. COMMENT: CRITERIA: No lung nodules. Nodules with specific calcifications: Complete, central, popcorn, concentric rings and fat containin g nodules. TECHNICAL DOCUMENTATION: JOB ID: [id number] Quality ID # [id number]: Final reports with documentation of one or more dose reduction techniques (e.g., Au tomated exposure control, adjustment of the mA and/or kV according to patient size, use of iterative reconstruction technique) 2010 [facility] Reading location - IP/workstation name: [email or web address]
== END ==
LOC: RAD 15:12
PROVIDERS: ATTEND Physician Assistant
DX: Z87.891 Personal history of nicotine dependence (principal)
CPT/HCPCS: G0297

== ENCOUNTER → 2018-01-26 | Outpatient (CLI) | payer MEDICARE, OTHER ==
[2018-01-27 16:37] LABS: ANTICHROMATIN AB <0.2 AI (0.0-0.9); CENTROMERE B AB <0.2 AI (0.0-0.9); JO-1 ANTIBODY (ANACOMP) <0.2 AI (0.0-0.9); SJOGREN'S ANTI-SS-B AB <0.2 AI (0.0-0.9); SJOGREN'S SS-A ANTIBODY <0.2 AI (0.0-0.9)
[2018-01-27 19:06] LABS: DNA DOUBLE STRAND ANTIBODY ANA <1 IU/mL (0-9)
[2018-01-29 18:37] LABS: CYTOPLASMIC (C-ANCA) <1:20 titer (Neg:<1:20)
[2018-01-30 07:41] LABS: ATYPICAL PANCA <1:20 titer (Neg:<1:20); PERINUCLEAR (P-ANCA) <1:20 titer (Neg:<1:20)
== END ==
LOC: OD 10:13
PROVIDERS: ATTEND Physician Assistant
DX: R94.2 Abnormal results of pulmonary function studies (principal)
CPT/HCPCS: 36415; 86021; 86225; 86235; 86430

== ENCOUNTER → 2018-01-26 | Outpatient (CLI) | payer MEDICARE, OTHER ==
--- NOTE | 2018-01-26 11:34 | RADIOLOGY REPORT (SQ) ---
EXAM DESCRIPTION: Sniff test under fluoroscopy COMPLETED DATE/TIME: 01/26/2018 10:04 am REASON FOR STUDY: SNIFF TEST DYSPNEA (R06.00) R06.00 DYSPNEA, UNSPECIFIED COMPARISON: CT chest 10/05/2017 and chest x-ray 09/06/2017 FLUOROSCOPY TIME: 24 seconds of fluoroscopy was used. 5 images saved to PACS. TECHNIQUE: Fluoroscopy of the chest and diaphragm was performed for evaluation of diaphragmatic move ment during respiration, including sniff. Fluoroscopic images were obtained and saved to PACS. LIMITATIONS: None. FINDINGS: RIGHT DIAPHRAGM : Normal movement. LEFT DIAPHRAGM: Normal movement. SNIFF: Slight paradoxical elevation of the right hemidiaphragm during sniff. IMPRESSION: SLIGHT PARADOXICAL ELEVATION OF THE RIGHT HEMIDIAPHRAGM DURING SNIFF. NORMAL DIAPHRAGMA TIC MOVEMENT DURING INSPIRATION, EXPIRATION, AND NORMAL BREATHING. COMMENT: Quality ID 145: Final reports for procedures using fluoroscopy that document radiation exp osure indices, or exposure time and number of fluorographic images (if radiation exposure indices are not available) TECHNICAL DOCUMENTATION: JOB ID: [id number] [employer]- All Rights Reserved Reading location - IP/workstation name: [email or web address]
== END ==
LOC: RAD 09:29
PROVIDERS: ATTEND Physician Assistant
DX: R06.00 Dyspnea, unspecified (principal)
CPT/HCPCS: 76000

== ENCOUNTER → 2018-10-29 | Outpatient (CLI) | payer MEDICARE, OTHER ==
[2018-10-29 18:49] LABS: HEMATOCRIT 40.9 % (37.9-51.0); HEMOGLOBIN 13.6 g/dL (13.5-17.0); MEAN CORPUSCULAR HEMOGLOBIN 28.2 pg (27.0-33.4); MEAN CORPUSCULAR HGB CONC 33.2 g/dL (32.0-36.0); MEAN CORPUSCULAR VOLUME 85 fl (80-97); RED BLOOD COUNT 4.81 10^6/uL (4.35-5.55); RED CELL DISTRIBUTION WIDTH 16.6 % (11.5-14.0); WHITE BLOOD COUNT 4.9 10^3/uL (4.0-10.5)
[2018-10-29 18:50] LABS: PLATELET COUNT 100 10^3/uL (150-450)
[2018-10-29 19:03] LABS: ALANINE AMINOTRANSFERASE 36 U/L (21-72); ALBUMIN 4.6 g/dL (3.5-5.0); ALKALINE PHOSPHATASE 50 U/L (38-126); ANION GAP 11 (5-19); ASPARTATE AMINO TRANSFERASE 32 U/L (17-59); BILIRUBIN,DIRECT 0.3 mg/dL (0.0-0.4); BILIRUBIN,TOTAL 0.8 mg/dL (0.2-1.3); BLOOD UREA NITROGEN 32 mg/dL (7-20); CALCIUM 10.1 mg/dL (8.4-10.2); CARBON DIOXIDE 29 mmol/L (22-30); CHLORIDE 99 mmol/L (98-107); GLUCOSE 183 mg/dL (75-110); LIPASE 311.2 U/L (23-300); POTASSIUM 5.3 mmol/L (3.6-5.0); SODIUM 138.6 mmol/L (137-145)
== END ==
LOC: LAB 18:05
PROVIDERS: ATTEND Internal Medicine Gastroenterology
DX: R10.13 Epigastric pain (principal)
CPT/HCPCS: 36415; 80048; 80076; 83690; 85027

== ENCOUNTER → 2018-12-14 | Outpatient (CLI) | payer MEDICARE, OTHER ==
--- NOTE | 2018-12-14 14:19 | RADIOLOGY REPORT (SQ) ---
EXAM DESCRIPTION: CT LUNG CANCER SCREENING COMPLETED DATE/TIME: 12/14/2018 1:53 pm REASON FOR STUDY: (Z87.891)PERSONAL HISTORY OF NICOTINE DEPENDENCE Z87.891 PERSONAL HISTORY OF CRISTIAN LEVON DEPENDENCE Has the patient had a Chest CT scan within the past year? Was the patient offered tobacco cessation counseling? Was the patient engaged in shared decision making for this test? Does the patient have signs or symptoms of Lung Cancer? Is the patient a smoker? How many pack years? How many years since quitting smoking? Patients age: COMPARISON: 10/05/2017 TECHNIQUE: Low Dose CT scan performed of the chest without intravenous contrast for purposes of scre ening for lung cancer. Images reviewed with lung, soft tissue and bone windows. Reconstructed coron al and sagittal MPR images reviewed. All images stored on PACS. All CT scanners at this facility use dose modulation, iterative reconstruction, and/or weight based d osing when appropriate to reduce radiation dose to as low as reasonably achievable (ALARA). [facility]: Dose Right [facility]: CareDose [facility]: Dose Right [facility]: Teradose 4D [facility]: [employer] RADIATION DOSE: CT Rad equipment meets quality standard of care and radiation dose reduction techniq ues were employed. CTDIvol: NaN mGy. DLP: 0 mGy-cm. mGy. . LIMITATIONS: None FINDINGS: LUNGS AND PLEURA: No masses or nodules. No pleural effusions or calcifications. No pne umothorax. Bilateral scattered areas of scarring and bronchiectasis -mild interstitial changes, sli ghtly increased compared with the prior study. HILAR AND MEDIASTINAL STRUCTURES: Scattered calcified and noncalcified nodes similar to the prior familia dy. HEART AND VASCULAR STRUCTURES: No aortic aneurysm. No pericardial effusion. No cardiac devices. CORONARY ARTERY CALCIFICATIONS: CABG. UPPER ABDOMEN, THYROID, BONES, OTHER SOFT TISSUES: No acute findings. IMPRESSION: Bilateral scattered areas of scarring and bronchiectasis -mild interstitial changes, sli ghtly increased compared with the prior study. No pulmonary nodularity or masses. LUNGRADS: LUNGRADS: 1 NEGATIVE. NO NODULES, OR DEFINITELY BENIGN NODULES MODIFIER: NONE RECOMMENDATION: Continue annual screening with LDCT in 12 months. COMMENT: CRITERIA: No lung nodules. Nodules with specific calcifications: Complete, central, popcorn, concentric rings and fat containin g nodules. TECHNICAL DOCUMENTATION: JOB ID: [id number] Quality ID # [id number]: Final reports with documentation of one or more dose reduction techniques (e.g., Au tomated exposure control, adjustment of the mA and/or kV according to patient size, use of iterative reconstruction technique) 2010 [facility] Reading location - IP/workstation name: [email or web address]
== END ==
LOC: RAD 13:37
PROVIDERS: ATTEND Internal Medicine Pulmonary Disease
DX: Z12.2 Encounter for screening for malignant neoplasm of respiratory organs (principal); Z09 Encounter for follow-up examination after completed treatment for conditions other than malignant neoplasm; Z87.891 Personal history of nicotine dependence; J47.9 Bronchiectasis, uncomplicated
CPT/HCPCS: G0297

== ENCOUNTER → 2019-12-25 | Outpatient (CLI) | payer MEDICARE, OTHER ==
--- NOTE | 2019-12-25 14:11 | RADIOLOGY REPORT (SQ) ---
EXAM DESCRIPTION: CT CHEST WITHOUT IMAGES COMPLETED DATE/TIME: 12/25/2019 1:46 pm REASON FOR STUDY: BRONCHIECTASIS (J47.9) J47.9 BRONCHIECTASIS, UNCOMPLICATED COMPARISON: CT CHEST DATED 12/14/2018, 10/05/2017, 01/19/2016 TECHNIQUE: CT scan performed of the chest without intravenous contrast. Images reviewed with lung, soft tissue and bone windows. Reconstructed coronal and sagittal MPR images reviewed. All images st ored on PACS. All CT scanners at this facility use dose modulation, iterative reconstruction, and/or weight based d osing when appropriate to reduce radiation dose to as low as reasonably achievable (ALARA). [facility]: Dose Right [facility]: CareDose [facility]: Dose Right [facility]: Teradose 4D [facility]: [employer] RADIATION DOSE: CT Rad equipment meets quality standard of care and radiation dose reduction techniq ues were employed. CTDIvol: 16.5 mGy. DLP: 666 mGy-cm. mGy. LIMITATIONS: No technical limitations. FINDINGS: LUNGS AND PLEURA: Chronic bilateral pleural and parenchymal changes. No significant paniagua e from most recent exam. There has been slight progression when compared to 2016. There is mild ana tral bronchiectasis which is stable. No dominant pulmonary nodules. No acute consolidation or pleur al effusion. HILAR AND MEDIASTINAL STRUCTURES: No identified masses or abnormal nodes. No obvious aneurysm. HEART AND VASCULAR STRUCTURES: Fairly extensive coronary artery calcification. Prior median sternoto my. UPPER ABDOMEN: No significant findings. Limited exam. THYROID AND OTHER SOFT TISSUES: No masses. No adenopathy. BONES: No significant finding. HARDWARE: Sternotomy wires are in place OTHER: No other significant findings. IMPRESSION: Chronic pleural and parenchymal changes. No significant change from prior study. TECHNICAL DOCUMENTATION: JOB ID: [id number] Quality ID # [id number]: Final reports with documentation of one or more dose reduction techniques (e.g., Au tomated exposure control, adjustment of the mA and/or kV according to patient size, use of iterative reconstruction technique) 2010 [employer]- All Rights Reserved Reading location - IP/workstation name: [email or web address]
== END ==
LOC: RAD 13:30
PROVIDERS: ATTEND Registered Nurse
DX: J47.9 Bronchiectasis, uncomplicated (principal)
CPT/HCPCS: 71250

== ENCOUNTER → 2020-03-04 | Outpatient (CLI) | payer MEDICARE, OTHER ==
--- NOTE | 2020-03-06 09:13 | RADIOLOGY REPORT (SQ) ---
EXAM DESCRIPTION: ARTERIAL LOWER EXTREM BILAT IMAGES COMPLETED DATE/TIME: 03/04/2020 2:17 pm REASON FOR STUDY: ATHEROSCLEROSIS E11.65 TYPE 2 DIABETES MELLITUS WITH HYPERGLYCEMIA I25.119 ATHSC L HEART DISEASE OF [place] COR ART W UNSP ANG PC COMPARISON: None. TECHNIQUE: Dynamic and static delcid scale and color images acquired of the lower extremity arteries. Additional selected spectral images recorded. LIMITATIONS: None. FINDINGS: RIGHT LEG: INFLOW ARTERIES: Normal, no obstruction evident. FEMORAL ARTERIES:Multiphasic waveforms. Common femoral, deep femoral and profunda femoral arteries ar e patent. There is between 50 and 74% narrowing in the profunda femoral artery at its origin. POPLITEAL ARTERY:Multiphasic waveforms. Normal, no velocity elevation to suggest focal stenosis. Norm al color Doppler evaluation. No aneurysm. PATENT TIBIOPERONEAL TRUNK AND 3 VESSEL RUNOFF: Biphasic infrapopliteal runoff. There is retrograde flow noted in the distal posterior tibial artery. OTHER: No other significant finding. LEFT LEG: INFLOW ARTERIES: Normal, no obstruction evident. FEMORAL ARTERIES:Multiphasic waveforms. Normal, no velocity elevation to suggest hemodynamically sign ificant focal stenosis. Normal color Doppler evaluation. No aneurysm. POPLITEAL ARTERY:Multiphasic waveforms. Normal, no velocity elevation to suggest focal stenosis. Norm al color Doppler evaluation. No aneurysm. PATENT TIBIOPERONEAL TRUNK AND 3 VESSEL RUNOFF: Monophasic infrapopliteal runoff. Occluded distal po sterior tibial artery. OTHER: No other significant finding. 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 No significant inflow disease appreciated. TECHNICAL DOCUMENTATION: JOB ID: [id number] 2010 [employer]- All Rights Reserved Reading location - IP/workstation name: [email or web address]
== END ==
LOC: SP 10:38
PROVIDERS: ATTEND Nurse Practitioner Adult Health
DX: E11.65 Type 2 diabetes mellitus with hyperglycemia (principal); I25.119 Atherosclerotic heart disease of native coronary artery with unspecified angina pectoris
CPT/HCPCS: 93925

== ENCOUNTER 2020-04-01 10:02 | Inpatient (IN) | payer MEDICARE, OTHER ==
[2020-04-01 11:17] LABS: ABSOLUTE EOSINOPHILS # (AUTO) 0.1 10^3/uL (0.0-0.6); ABSOLUTE LYMPHOCYTES (AUTO) 0.7 10^3/uL (0.5-4.7); ABSOLUTE MONOCYTES (AUTO) 0.3 10^3/uL (0.1-1.4); ABSOLUTE NEUT (AUTO) 3.7 10^3/uL (1.7-8.2); BASOPHILS % (AUTO) 0.6 % (0-2); EOSINOPHILS % (AUTO) 2.6 % (0-6); HEMATOCRIT 35.9 % (37.9-51.0); HEMOGLOBIN 11.8 g/dL (13.5-17.0); MEAN CORPUSCULAR HEMOGLOBIN 26.4 pg (27.0-33.4); MEAN CORPUSCULAR VOLUME 80 fl (80-97); MONOCYTES % (AUTO) 6.4 % (3-13); PLATELET COUNT 132 10^3/uL (150-450); RED BLOOD COUNT 4.48 10^6/uL (4.35-5.55); RED CELL DISTRIBUTION WIDTH 15.2 % (11.5-14.0); SEGMENTED NEUTROPHILS % (AUTO) 75.4 % (42-78); TOTAL CELLS COUNTED % (AUTO) 100 %
[2020-04-01 11:52] LABS: ALKALINE PHOSPHATASE 104 U/L (38-126); ANION GAP 8 (5-19); ASPARTATE AMINO TRANSFERASE 37 U/L (17-59); BILIRUBIN,DIRECT 0.5 mg/dL (0.0-0.4); BILIRUBIN,TOTAL 0.9 mg/dL (0.2-1.3); BLOOD UREA NITROGEN 23 mg/dL (7-20); CALCIUM 9.7 mg/dL (8.4-10.2); CARBON DIOXIDE 33 mmol/L (22-30); CHLORIDE 97 mmol/L (98-107); GLUCOSE 254 mg/dL (75-110); POTASSIUM 4.6 mmol/L (3.6-5.0); TOTAL PROTEIN 6.6 g/dL (6.3-8.2)
--- NOTE | 2020-04-01 12:02 | RADIOLOGY REPORT (SQ) ---
EXAM DESCRIPTION: CT CHEST WITHOUT IMAGES COMPLETED DATE/TIME: 04/01/2020 11:34 am REASON FOR STUDY: cough/sob COMPARISON: CT of the chest without contrast from 12/25/2019. TECHNIQUE: CT scan performed of the chest without intravenous contrast. Images reviewed with lung, soft tissue and bone windows. Reconstructed coronal and sagittal MPR images reviewed. All images st ored on PACS. All CT scanners at this facility use dose modulation, iterative reconstruction, and/or weight based d osing when appropriate to reduce radiation dose to as low as reasonably achievable (ALARA). [facility]: Dose Right [facility]: CareDose [facility]: Dose Right [facility]: Teradose 4D [facility]: Smart Pulselocker RADIATION DOSE: CT Rad equipment meets quality standard of care and radiation dose reduction techniq ues were employed. CTDIvol: 17.9 mGy. DLP: 694 mGy-cm. LIMITATIONS: No technical limitations. FINDINGS: LUNGS AND PLEURA: The trachea and main bronchi are patent. The consolidative opacities as sociated volume loss in the lingula and left lower lobe are unchanged. There are acute bilateral/ mu ltifocal peripheral ground-glass opacities in a peribronchial distribution. There is no lobar consol idation, pleural effusion or pneumothorax. HILAR AND MEDIASTINAL STRUCTURES: Evaluation of the stephanie for adenopathy is limited by the absence of intravenous contrast. There is no mediastinal adenopathy, pneumomediastinum or mass. HEART AND VASCULAR STRUCTURES: Status post median sternotomy and CABG. The ventricles are enlarged. There is atherosclerotic calcification of the thoracic aorta and coronary arteries. There is no per icardial effusion or thoracic aortic aneurysm. . UPPER ABDOMEN: Pneumobilia and splenomegaly. THYROID AND OTHER SOFT TISSUES: No mass or adenopathy. BONES: Findings of DISH in the thoracic spine. HARDWARE: None in the chest. OTHER: No other findings. IMPRESSION: Acute bilateral/ multifocal peripheral ground-glass opacities in a peribronchial distrib ution. Correlation with clinical signs and symptoms for a multifocal infection (including COVID-19) is recommended. TECHNICAL DOCUMENTATION: JOB ID: [id number] Quality ID # [id number]: Final reports with documentation of one or more dose reduction techniques (e.g., Au tomated exposure control, adjustment of the mA and/or kV according to patient size, use of iterative reconstruction technique) 2010 [employer]- All Rights Reserved Reading location - IP/workstation name: [email or web address]
[2020-04-01] MEDS ORDERED: AZITHROMYCIN 250 MG TABLET PO ONE (12:29)
[2020-04-01] MEDS ORDERED: CEFTRIAXONE 2 GM/D5W RTU 2 GM/50 ML RTUPB IV ONE (12:29)
--- NOTE | 2020-04-01 12:37 | ER Document Report ---
ED General - General Chief Complaint: Cough Stated Complaint: COUGH,SHORT OF BREATH Time Seen by Provider: 04/01/20 10:31 Primary Care Provider: CARLITOS GROVES NP-C [Primary Care Provider] - Follow up as needed Mode of Arrival: Ambulatory Information source: Patient TRAVEL OUTSIDE OF THE [place] IN LAST 30 DAYS: No - HPI Notes: Patient presents complaining of shortness of breath and cough. Patient states that he has had a worse cough for approximately 2 to 3 weeks. He states that shortness of breath has been slightly worse and that he has had to increase his home oxygen from 2 L to 3 L. The shortness of breath is worse with exertion and better with rest. He states that he was tested for Covid 2 weeks ago and was negative. He states right around that time he was exposed to a person who had Covid but he is not sure who this person is. He states he has some tightness of the chest but otherwise no pain. No vomiting or diarrhea. He has had no subjective fever or chills. - Related Data Allergies/Adverse Reactions: amlodipine Allergy (Verified 04/03/17 15:17) swells and retains fluid levofloxacin Allergy (Verified 04/05/17 12:47) Chest pain pioglitazone [From Actos] Allergy (Verified 04/03/17 15:17) swells and retains fluid Past Medical History - General Information source: Patient - Social History Smoking Status: Former Smoker Frequency of alcohol use: None Drug Abuse: None Family History: Reviewed & Not Pertinent Patient has homicidal ideation: No - Past Medical History Cardiac Medical History: Reports: Hx Heart Attack - 2002, Hx Hypercholesterolemia, Hx Hypertension Pulmonary Medical History: Reports: Hx Asthma, Hx COPD, Hx Pneumonia Neurological Medical History: Denies: Hx Cerebrovascular Accident, Hx Seizures Renal/ Medical History: Denies: Hx Peritoneal Dialysis GI Medical History: Denies: Hx Hepatitis, Hx Hiatal Hernia, Hx Ulcer Infectious Medical History: Denies: Hx Hepatitis Past Surgical History: Reports: Hx Open Heart Surgery - CABG X5 . Denies: Hx Pa cemaker - Immunizations Hx Diphtheria, Pertussis, Tetanus Vaccination: No Hx Pneumococcal Vaccination: 05/01/11 Review of Systems - Review of Systems Constitutional: Malaise, Weakness. denies: Chills, Fever Cardiovascular: denies: Chest pain, Palpitations Respiratory: Cough, Short of breath -: Yes All other systems reviewed and negative Physical Exam - Vital signs Vitals: Temp Pulse Resp BP Pulse Ox 98.1 F 84 22 H 131/59 H 94 04/01/20 10:12 04/01/20 10:12 04/01/20 10:12 04/01/20 10:12 04/01/20 10:12 Interpretation: Normal - General General appearance: Appears well, Alert - HEENT Head: Normocephalic, Atraumatic Eyes: Normal Pupils: PERRL - Respiratory Respiratory status: No respiratory distress Chest status: Nontender Breath sounds: Decreased air movement, Rhonchi Chest palpation: Normal - Cardiovascular Rhythm: Regular Heart sounds: Normal auscultation Murmur: No - Abdominal Inspection: Normal Distension: No distension Bowel sounds: Normal Tenderness: Nontender Organomegaly: No organomegaly - Back Back: Normal, Nontender - Extremities General upper extremity: Normal inspection, Nontender, Normal color, Normal ROM, Normal temperature General lower extremity: Normal inspection, Nontender, Normal color, Normal ROM, Normal temperature, Normal weight bearing. No: Jennifer's sign - Neurological Neuro grossly intact: Yes Cognition: Normal Orientation: AAOx4 [place] Coma Scale Eye Opening: Spontaneous [place] Coma Scale Verbal: Oriented David Coma Scale Motor: Obeys Commands David Coma Scale Total: 15 Speech: Normal Motor strength normal: LUE, RUE, LLE, RLE Sensory: Normal - Psychological Associated symptoms: Normal affect, Normal mood - Skin Skin Temperature: Warm Skin Moisture: Dry Skin Color: Normal Course - Re-evaluation Re-evalutation: 04/01/20 12:38 Patient presents with worsening cough and some shortness of breath. Patient has a history of diabetes as well as COPD and home oxygen use. He states the last 4 weeks he has had to increase his home oxygen from 2 to 3 L and he has become more short of breath and has developed a worsening cough. He states he has been exposed to somebody with Covid. CT is consistent with a Covid type infection. Patient will require admission to the hospital for further therapy. The patient was evaluated during a global COVID-19 pandemic and that diagnosis was suspected/considered upon their initial presentation. Their evaluation, treatment and testing was consistent with current guidelines for patients who present with complaints or symptoms and may be related to COVID-19. - Vital Signs Vital signs: Temp Pulse Resp BP Pulse Ox 98.1 F 84 22 H 131/59 H 94 04/01/20 10:12 04/01/20 10:12 04/01/20 10:12 04/01/20 10:12 04/01/20 10:12 - Laboratory Result Diagrams: 04/01/20 10:53 04/01/20 10:53 Laboratory results interpreted by me: 04/01/20 04/01/20 10:53 10:53 Hgb 11.8 L Hct 35.9 L MCH 26.4 L RDW 15.2 H Plt Count 132 L Chloride 97 L Carbon Dioxide 33 H BUN 23 H Glucose 254 H Direct Bilirubin 0.5 H - Diagnostic Test Radiology reviewed: Image reviewed, Reports reviewed - EKG Interpretation by Me EKG shows normal: Sinus rhythm Rate: Normal - 80 Rhythm: NSR [place]/QRS: No: Right axis deviation, Left axis deviation Discharge - Discharge Clinical Impression: Pneumonia due to COVID-19 virus Condition: Serious Disposition: ADMITTED INPATIENT Admitting Provider: Winter (Hospitalist) Unit Admitted: IMCU Referrals: CALRITOS GROVES NP-C [Primary Care Provider] - Follow up as needed
[2020-04-01] MEDS ORDERED: NORMAL SALINE 1000 ML 1,000 ML IV PRN (13:16)
[2020-04-01] MEDS ORDERED: OXYCODONE-ACETAMINOPHEN 5-325 MG TABLET PO PRN (13:16)
[2020-04-01] MEDS ORDERED: ACETAMINOPHEN 325 MG TABLET PO PRN (13:16)
[2020-04-01] MEDS ORDERED: ONDANSETRON HCL INJ/PF 4 MG/2 ML SDV IV PRN (13:16)
[2020-04-01] MEDS ORDERED: TEMAZEPAM 7.5 MG CAPSULE PO PRN (13:16)
[2020-04-01] MEDS ORDERED: LEVALBUTEROL HCL NEB 0.63 MG/3 ML AMPUL NEB PRN (13:16)
[2020-04-01] MEDS ORDERED: DEXTROSE 40% GEL 15 GM TUBE PO PRN ×2 (13:25)
[2020-04-01] MEDS ORDERED: DEXTROSE 50%-WATER 25 GM/50 ML DISP.SYRIN IV PRN ×2 (13:25)
[2020-04-01] MEDS ORDERED: GLUCAGON,HUMAN RECOMB 1 MG INJ IM PRN (13:25)
--- NOTE | 2020-04-01 13:37 | PDOC H&P ---
History of Present Illness Admission Date/PCP: 04/01/20 12:46 TAHIRA MANZO Patient complains of: Came in with complaints of cough for last 2 weeks History of Present Illness: JOHN PAUL SWEENEY is a 75 year old male with history of COPD on 2 L oxygen, ex-smoker, colon cancer with partial colon resection, coronary artery disease status post bypass, diabetes mellitus hypertension came to the emergency room with complaints of cough for the last 2 weeks. His was tested positive for COVID-19 10 days ago. As per the patient COVID-19 is -2 weeks ago. Repeat COVID-19 was done in the ER results are pending at this time. CT of the chest is negative for PE but extensive pneumonia is seen. he did agree to stay in the hospital for further management. Wants to be DNI. Past Medical History Cardiac Medical History: Reports: Myocardial Infarction - 2003, Hyperlipidema, Hypertension Pulmonary Medical History: Reports: Asthma, Chronic Obstructive Pulmonary Disease (COPD), Pneumonia Neurological Medical History: Denies: Seizures GI Medical History: Denies: Hepatitis, Hiatal Hernia Hematology: Reports: Anemia - HX Denies: Sickle Cell Disease Past Surgical History Past Surgical History: Reports: Coronary Artery Bypass Graft, Other - Partial colon resection Denies: Pacemaker Social History Information Source: Patient Smoking Status: Former Smoker Frequency of Alcohol Use: None Hx Recreational Drug Use: No - Advance Directive Resuscitation Status: Do Not Intubate Family History Family History: Reviewed & Not Pertinent Parental Family History Reviewed: Yes - Hypertension and diabetes mellitus Children Family History Reviewed: No Sibling(s) Family History Reviewed.: No Medication/Allergy Allergies/Adverse Reactions: amlodipine Allergy (Verified 04/03/17 15:17) swells and retains fluid levofloxacin Allergy (Verified 04/05/17 12:47) Chest pain pioglitazone [From Actos] Allergy (Verified 04/03/17 15:17) swells and retains fluid Review of Systems Constitutional: ABSENT: fatigue, fever(s), headache(s), weakness Eyes: ABSENT: visual disturbances Ears: ABSENT: hearing changes Nose, Mouth, and Throat: ABSENT: sore throat Cardiovascular: ABSENT: dyspnea on exertion, edema, orthropnea, palpitations Respiratory: PRESENT: cough, sputum Gastrointestinal: ABSENT: abdominal pain, constipation, diarrhea, hematemesis, hematochezia, nausea, vomiting Genitourinary: ABSENT: dysuria, hematuria Musculoskeletal: ABSENT: joint swelling Integumentary: ABSENT: rash, wounds Neurological: ABSENT: abnormal gait, abnormal speech, confusion, dizziness, focal weakness, syncope Psychiatric: ABSENT: anxiety, depression, homidical ideation, suicidal ideation Physical Exam Vital Signs: Temp Pulse Resp BP Pulse Ox 98.1 F 84 22 H 131/59 H 94 04/01/20 10:12 04/01/20 10:12 04/01/20 10:12 04/01/20 10:12 04/01/20 10:12 Intake & Output 03/31/20 04/01/20 04/02/20 06:59 06:59 06:59 Weight 98.5 kg General appearance: PRESENT: no acute distress, cooperative, obese, well- developed Head exam: PRESENT: atraumatic Eye exam: PRESENT: PERRLA Ear exam: PRESENT: normal external ear exam Mouth exam: PRESENT: neck supple Teeth exam: PRESENT: poor dentation Neck exam: ABSENT: carotid bruit, JVD, lymphadenopathy, thyromegaly Respiratory exam: PRESENT: decreased breath sounds Cardiovascular exam: PRESENT: RRR. ABSENT: diastolic murmur, rubs, systolic murmur Pulses: PRESENT: normal dorsalis pedis pul GI/Abdominal exam: PRESENT: normal bowel sounds, soft. ABSENT: distended, guarding, mass, organolmegaly, rebound, tenderness Rectal exam: PRESENT: deferred Extremities exam: PRESENT: full ROM. ABSENT: calf tenderness, clubbing, pedal edema Neurological exam: PRESENT: alert, awake, oriented to person, oriented to place, oriented to time, oriented to situation, CN II-XII grossly intact. ABSENT: motor sensory deficit Psychiatric exam: PRESENT: appropriate affect, normal mood. ABSENT: homicidal ideation, suicidal ideation Results Laboratory Results: 04/01/20 10:53 04/01/20 10:53 04/01/20 04/01/20 10:53 10:53 WBC 5.0 RBC 4.48 Hgb 11.8 L Hct 35.9 L MCV 80 MCH 26.4 L MCHC 33.0 RDW 15.2 H Plt Count 132 L Seg Neutrophils % 75.4 Sodium 138.4 Potassium 4.6 Chloride 97 L Carbon Dioxide 33 H Anion Gap 8 BUN 23 H Creatinine 0.76 Est GFR ( Amer) > 60 Glucose 254 H Calcium 9.7 Total Bilirubin 0.9 AST 37 Alkaline Phosphatase 104 Total Protein 6.6 Albumin 4.0 04/01/20 10:53 Troponin I < 0.012 Impressions: Chest CT 04/01/20 10:46 IMPRESSION: Acute bilateral/ multifocal peripheral ground-glass opacities in a peribronchial distribution. Correlation with clinical signs and symptoms for a multifocal infection (including COVID-19) is recommended. Assessment and Plan - Diagnosis (1) Pneumonia due to COVID-19 virus Is this a current diagnosis for this admission?: Yes Plan: 04/01/2020-patient is going to be admitted to [facility] for pneumonia most likely secondary to COVID-19 pneumonia. Added on dexamethasone 6 mg IV daily. Started on Lovenox treatment dose. To provide oxygen supplementations. Started on IV Rocephin and Zithromax. Blood cultures are pending. COVID-19 is pending at this time. Requested for ferritin, ESR, CRP, procalcitonin, CK, D-dimer. Lactic acid levels. (2) Hypoxia Is this a current diagnosis for this admission?: Yes Plan: 04/01/2020-patient admitted with acute on chronic exacerbation of COPD with hypoxia. Patient is on 2 L of oxygen at home in the emergency room he is on 3 L pulse ox is around 96%. To continue nebulizer treatments and a continue oxygen supplementation at this time. (3) HTN (hypertension) Qualifiers: Hypertension type: essential hypertension Qualified Code(s): I10 - Essential (primary) hypertension Is this a current diagnosis for this admission?: No Plan: 04/01/20-patient has history of chronic essential hypertension blood pressure is 130/60. Stable. (4) CAD (coronary artery disease) Qualifiers: Coronary Disease-Associated Artery/Lesion type: [place] artery Associated angina: without angina Is this a current diagnosis for this admission?: No Plan: 04/01/2020-patient has history of coronary artery disease status post bypass. Denies any chest pains at the time of my examination. (5) Diabetes Qualifiers: Diabetes mellitus type: type 2 Is this a current diagnosis for this admission?: No Plan: 04/01/2020-patient has history of type 2 diabetes mellitus. Start on insulin sliding scale before meals and at bedtime. Diet exercise weight loss lifestyle modification discussed with the patient. (6) Obesity (BMI 30.0-34.9) Is this a current diagnosis for this admission?: No Plan: 04/01/2020-AMI is more than 33. Diet exercise weight loss lifestyle modifications discussed with the patient. - Time Anticipated Discharge Disposition: Home, Self Care Anticipated Discharge Timeframe: within 72 hours
--- NOTE | 2020-04-01 13:38 | EKG REPORT ---
SEVERITY:- BORDERLINE ECG - SINUS RHYTHM PROBABLE LEFT ATRIAL ABNORMALITY : Confirmed by: Enrique Pack MD 01-Apr-2020 13:37:48
[2020-04-01] MEDS: DOCUSATE SODIUM 100 MG CAPSULE PO SCH (17:22)
[2020-04-01] MEDS: INSULIN REG, HUMAN 100 UNIT/ML 3 ML VIAL (PYX) SUBCUT SCH ×2 (17:39→22:15)
[2020-04-01] MEDS: IVERMECTIN 3 MG TABLET PO SCH (18:53)
[2020-04-01] MEDS: FAMOTIDINE 20 MG TABLET PO SCH (22:15)
[2020-04-01] MEDS: ENOXAPARIN SODIUM INJ 100 MG/1 ML DISP.SYRIN SUBCUT SCH (22:19)
[2020-04-01] MEDS ORDERED: INSULIN GLARGINE,HUM.REC.ANLOG 1,000 UNIT/10 ML VIAL (PYX) SUBCUT PRN (22:41)
[2020-04-01] MEDS ORDERED: INSULIN GLARGINE,HUM.REC.ANLOG 1,000 UNIT/10 ML VIAL SUBCUT ONE (22:45)
[2020-04-01] MEDS ORDERED: INSULIN GLARGINE,HUM.REC.ANLOG 1,000 UNIT/10 ML VIAL (PYX) SUBCUT ONE (22:45)
[2020-04-02] MEDS: LORAZEPAM INJ 2 MG/1 ML VIAL IV PRN ×2 (00:44→22:18)
[2020-04-02 05:43] LABS: C-REACTIVE PROTEIN 28.3 mg/L (<10.0)
[2020-04-02 07:27] LABS: ABSOLUTE EOSINOPHILS # (AUTO) 0.1 10^3/uL (0.0-0.6); ABSOLUTE LYMPHOCYTES (AUTO) 1.2 10^3/uL (0.5-4.7); ABSOLUTE MONOCYTES (AUTO) 0.4 10^3/uL (0.1-1.4); ABSOLUTE NEUT (AUTO) 2.9 10^3/uL (1.7-8.2); BASOPHILS % (AUTO) 0.7 % (0-2); EOSINOPHILS % (AUTO) 2.2 % (0-6); HEMATOCRIT 35.2 % (37.9-51.0); HEMOGLOBIN 11.6 g/dL (13.5-17.0); LYMPHOCYTES % (AUTO) 25.5 % (13-45); MEAN CORPUSCULAR HEMOGLOBIN 26.3 pg (27.0-33.4); MEAN CORPUSCULAR VOLUME 80 fl (80-97); MONOCYTES % (AUTO) 8.1 % (3-13); PLATELET COUNT 141 10^3/uL (150-450); RED BLOOD COUNT 4.41 10^6/uL (4.35-5.55); RED CELL DISTRIBUTION WIDTH 15.4 % (11.5-14.0); SEGMENTED NEUTROPHILS % (AUTO) 63.5 % (42-78); TOTAL CELLS COUNTED % (AUTO) 100 %; WHITE BLOOD COUNT 4.5 10^3/uL (4.0-10.5)
[2020-04-02] MEDS: INSULIN REG, HUMAN 100 UNIT/ML 3 ML VIAL (PYX) SUBCUT SCH ×4 (08:00→21:56)
[2020-04-02 08:11] LABS: ALBUMIN 3.9 g/dL (3.5-5.0); ALKALINE PHOSPHATASE 91 U/L (38-126); ANION GAP 8 (5-19); ASPARTATE AMINO TRANSFERASE 30 U/L (17-59); BILIRUBIN,DIRECT 0.3 mg/dL (0.0-0.4); BILIRUBIN,TOTAL 0.6 mg/dL (0.2-1.3); BLOOD UREA NITROGEN 21 mg/dL (7-20); CALCIUM 9.6 mg/dL (8.4-10.2); CARBON DIOXIDE 29 mmol/L (22-30); CHLORIDE 101 mmol/L (98-107); GLUCOSE 204 mg/dL (75-110); POTASSIUM 4.2 mmol/L (3.6-5.0); TOTAL PROTEIN 6.6 g/dL (6.3-8.2)
--- NOTE | 2020-04-02 08:12 | PDOC PROGRESS REPORT ---
Subjective Date:: 04/02/20 Subjective:: 75 year old male with history of COPD on 2 L oxygen, ex-smoker, colon cancer wit h partial colon resection, coronary artery disease status post bypass, diabetes mellitus hypertension came to the emergency room with complaints of cough for the last 2 weeks. His was tested positive for COVID-19 10 days ago. As per the patient COVID-19 is -2 weeks ago. Repeat COVID-19 was done in the ER results are pending at this time. CT of the chest is negative for PE but extensive pneumonia is seen. he did agree to stay in the hospital for further management. Wants to be DNI. 04/02/[id number]-pfry-old male admitted with COVID-19 pneumonia receiving ivermectin dexamethasone. He is on treatment dose of Lovenox. ESR is 49, CK 27, D-dimer is 0.37. He is on treatment dose of Lovenox. Pulse ox is 94% on 2 L. Reason For Visit: PNEUMONIA DUE TO COVID 19 VIRUS Physical Exam Vital Signs: Temp Pulse Resp BP Pulse Ox 98.5 F 102 H 16 150/65 H 94 04/02/20 03:36 04/02/20 03:36 04/02/20 03:36 04/02/20 03:36 04/02/20 03:36 Intake & Output 04/01/20 04/02/20 04/03/20 06:59 06:59 06:59 Intake Total 504 Output Total 175 Balance 329 Weight 99.6 kg General appearance: PRESENT: no acute distress, morbidly obese Head exam: PRESENT: atraumatic Eye exam: PRESENT: PERRLA Mouth exam: PRESENT: moist, tongue midline Teeth exam: PRESENT: poor dentation Neck exam: ABSENT: carotid bruit, JVD, lymphadenopathy, thyromegaly Respiratory exam: PRESENT: decreased breath sounds Cardiovascular exam: PRESENT: RRR. ABSENT: diastolic murmur, rubs, systolic mu rmur GI/Abdominal exam: PRESENT: normal bowel sounds, soft. ABSENT: distended, guarding, mass, organolmegaly, rebound, tenderness Rectal exam: PRESENT: deferred Extremities exam: PRESENT: full ROM. ABSENT: calf tenderness, clubbing, pedal edema Neurological exam: PRESENT: alert, awake, oriented to person, oriented to place, oriented to time, oriented to situation, CN II-XII grossly intact. ABSENT: motor sensory deficit Psychiatric exam: PRESENT: appropriate affect, normal mood. ABSENT: homicidal ideation, suicidal ideation Results Laboratory Results: 04/02/20 04:19 04/01/20 04/01/20 04/01/20 10:53 10:53 13:57 WBC 5.0 RBC 4.48 Hgb 11.8 L Hct 35.9 L MCV 80 MCH 26.4 L MCHC 33.0 RDW 15.2 H Plt Count 132 L Seg Neutrophils % 75.4 Sodium 138.4 Potassium 4.6 Chloride 97 L Carbon Dioxide 33 H Anion Gap 8 BUN 23 H Creatinine 0.76 Est GFR ( Amer) > 60 Glucose 254 H Lactic Acid Calcium 9.7 Ferritin Total Bilirubin 0.9 AST 37 Alkaline Phosphatase 104 C-Reactive Protein Total Protein 6.6 Albumin 4.0 Blood Type A POSITIVE 04/01/20 04/02/20 04/02/20 13:57 04:19 04:19 WBC 4.5 RBC 4.41 Hgb 11.6 L Hct 35.2 L MCV 80 MCH 26.3 L MCHC 33.0 RDW 15.4 H Plt Count 141 L Seg Neutrophils % 63.5 Sodium Potassium Chloride Carbon Dioxide Anion Gap BUN Creatinine Est GFR ( Amer) Glucose Lactic Acid 2.2 H Calcium Ferritin 107.00 Total Bilirubin AST Alkaline Phosphatase C-Reactive Protein 28.3 H Total Protein Albumin Blood Type 04/01/20 04/01/20 04/02/20 10:53 13:57 04:19 Creatine Kinase 27 L Troponin I < 0.012 < 0.012 Impressions: Chest CT 04/01/20 10:46 IMPRESSION: Acute bilateral/ multifocal peripheral ground-glass opacities in a peribronchial distribution. Correlation with clinical signs and symptoms for a multifocal infection (including COVID-19) is recommended. Assessment and Plan - Diagnosis (1) Pneumonia due to COVID-19 virus Is this a current diagnosis for this admission?: Yes Plan: 04/01/2020-patient is going to be admitted to [facility] for pneumonia most likely secondary to COVID-19 pneumonia. Added on dexamethasone 6 mg IV daily. Started on Lovenox treatment dose. To provide oxygen supplementations. Started on IV Rocephin and Zithromax. Blood cultures are pending. COVID-19 is pending at this time. Requested for ferritin, ESR, CRP, procalcitonin, CK, D-dimer. Lactic acid levels. 04/02/2020-patient admitted with COVID-19 pneumonia and hypoxia. Pulse ox is 94% on 2 L this morning. Comfortably in the bed communicating well. D-dimer is 0.37, CK is 27, ESR 49. To continue dexamethasone and patient received ivermectin ivermectin and he is on treatment dose of Lovenox. (2) Hypoxia Is this a current diagnosis for this admission?: Yes Plan: 04/01/2020-patient admitted with acute on chronic exacerbation of COPD with hypoxia. Patient is on 2 L of oxygen at home in the emergency room he is on 3 L pulse ox is around 96%. To continue nebulizer treatments and a continue oxygen supplementation at this time. 04/02/20-patient admitted with acute on chronic hypoxic respiratory failure pulse oxes are improving. Pulse ox is 94% 2 L this morning. To continue the p resent management at this time. (3) HTN (hypertension) Qualifiers: Hypertension type: essential hypertension Qualified Code(s): I10 - Essential (primary) hypertension Is this a current diagnosis for this admission?: No Plan: 04/01/20-patient has history of chronic essential hypertension blood pressure is 130/60. Stable. 04/02/2020-blood pressure this morning is 150/65. IV fluids are discontinued. To continue his home medications. (4) CAD (coronary artery disease) Qualifiers: Coronary Disease-Associated Artery/Lesion type: [place] artery Associated angina: without angina Is this a current diagnosis for this admission?: No Plan: 04/01/2020-patient has history of coronary artery disease status post bypass. Denies any chest pains at the time of my examination. (5) Diabetes Qualifiers: Diabetes mellitus type: type 2 Is this a current diagnosis for this admission?: No Plan: 04/01/2020-patient has history of type 2 diabetes mellitus. Start on insulin sliding scale before meals and at bedtime. Diet exercise weight loss lifestyle modification discussed with the patient. 04/02/2020-latest blood sugar is 203. Patient is insulin sliding scale before meals and at bedtime. Plan is to continue the present management at this time. (6) Obesity (BMI 30.0-34.9) Is this a current diagnosis for this admission?: No Plan: 04/01/2020-AMI is more than 33. Diet exercise weight loss lifestyle modifications discussed with the patient. - Time Anticipated Discharge Disposition: Home, Self Care Anticipated Discharge Timeframe: within 72 hours
[2020-04-02] MEDS ORDERED: IVERMECTIN 3 MG TABLET PO SCH (10:00)
[2020-04-02] MEDS ORDERED: (PENDING PHARMACY ID) (Multivit-Min/Fa/Lycopen/Lutein [Centrum Silver Men Tablet] 1 EACH T PO SCH (10:00)
[2020-04-02] MEDS ORDERED: DEXAMETHASONE SOD PHOS INJ 10 MG/1 ML VIAL IV SCH (10:00)
[2020-04-02] MEDS ORDERED: ALPHA LIPOIC ACID 200 MG PO SCH (10:00)
[2020-04-02] MEDS ORDERED: BENAZEPRIL HCL 40 MG PO SCH (10:00)
[2020-04-02] MEDS ORDERED: VITAMIN E 400 UNIT PO SCH (10:00)
[2020-04-02] MEDS ORDERED: (PENDING PHARMACY ID) (Ubidecarenone/Vit E Acet [Co Q-10 100 Mg Softgel] 1 EACH Capsule) PO SCH (10:00)
[2020-04-02] MEDS ORDERED: CEFTRIAXONE INJ 1000 MG VIAL IV SCH (10:00)
[2020-04-02] MEDS: METOPROLOL TARTRATE 25 MG TABLET PO SCH ×2 (10:13→21:57)
[2020-04-02] MEDS: DEXAMETHASONE SOD PHOSPHATE INJ 4 MG/1 ML VIAL IV SCH (10:59)
[2020-04-02] MEDS: ENOXAPARIN SODIUM INJ 100 MG/1 ML DISP.SYRIN SUBCUT SCH ×2 (11:00→21:57)
[2020-04-02] MEDS: FAMOTIDINE 20 MG TABLET PO SCH ×2 (11:01→21:58)
[2020-04-02] MEDS: DOCUSATE SODIUM 100 MG CAPSULE PO SCH ×2 (11:01→18:35)
[2020-04-02] MEDS: ASPIRIN 81 MG TABLET, ENT COATED PO SCH (11:01)
[2020-04-02] MEDS: CEFTRIAXONE 1 GM/D5W RTU 1 GM/50 ML RTUPB IV SCH (11:01)
[2020-04-02] MEDS: ZINC SULFATE 220 MG CAPSULE PO SCH (11:01)
[2020-04-02] MEDS: BENAZEPRIL HCL 20 MG TABLET PO SCH (11:02)
[2020-04-02] MEDS: TAMSULOSIN HCL 0.4 MG CAP.SR.24H PO SCH (11:02)
[2020-04-02] MEDS: VITAMIN E (DL, ACETATE) 400 UNIT CAPSULE PO SCH (11:02)
[2020-04-02] MEDS: CHOLECALCIFEROL (D3) 1,000 UNIT (25 MCG) TABLET PO SCH (11:02)
[2020-04-02] MEDS: MULTIVITAMIN TABLET PO SCH (11:03)
[2020-04-02 15:04] LABS: APPEARANCE,URINE CLEAR; BILIRUBIN,URINE NEGATIVE (NEGATIVE); COLOR,URINE YELLOW; GLUCOSE, URINE >=500 mg/dL (NEGATIVE); KETONES,URINE NEGATIVE (NEGATIVE); LEUKOCYTE ESTERASE,URINE NEGATIVE (NEGATIVE); NITRITE,URINE NEGATIVE (NEGATIVE); PROTEIN,URINE 30 mg/dL (NEGATIVE); URINE SPECIFIC GRAVITY 1.016; UROBILINOGEN,URINE NEGATIVE mg/dL (<2.0)
[2020-04-02] MEDS: MELATONIN 5 MG TABLET PO SCH (21:58)
[2020-04-02] MEDS ORDERED: INSULIN GLARGINE,HUM.REC.ANLOG 1,000 UNIT/10 ML VIAL SUBCUT SCH (22:00)
[2020-04-02] MEDS ORDERED: MELATONIN 10 MG PO SCH (22:00)
[2020-04-02] MEDS: INSULIN GLARGINE,HUM.REC.ANLOG 1,000 UNIT/10 ML VIAL SUBCUT SCH (22:02)
[2020-04-03 04:55] LABS: HEMATOCRIT 35.8 % (37.9-51.0); HEMOGLOBIN 11.6 g/dL (13.5-17.0); MEAN CORPUSCULAR HEMOGLOBIN 26.2 pg (27.0-33.4); MEAN CORPUSCULAR HGB CONC 32.3 g/dL (32.0-36.0); MEAN CORPUSCULAR VOLUME 81 fl (80-97); PLATELET COUNT 146 10^3/uL (150-450); RED BLOOD COUNT 4.42 10^6/uL (4.35-5.55); RED CELL DISTRIBUTION WIDTH 15.3 % (11.5-14.0); WHITE BLOOD COUNT 4.6 10^3/uL (4.0-10.5)
[2020-04-03 05:16] LABS: ALKALINE PHOSPHATASE 95 U/L (38-126); ANION GAP 9 (5-19); ASPARTATE AMINO TRANSFERASE 44 U/L (17-59); BILIRUBIN,DIRECT 0.4 mg/dL (0.0-0.4); BILIRUBIN,TOTAL 0.7 mg/dL (0.2-1.3); BLOOD UREA NITROGEN 24 mg/dL (7-20); C-REACTIVE PROTEIN 17.7 mg/L (<10.0); CARBON DIOXIDE 30 mmol/L (22-30); CHLORIDE 101 mmol/L (98-107); CREATINE KINASE 22 U/L (55-170); GLUCOSE 238 mg/dL (75-110); POTASSIUM 4.6 mmol/L (3.6-5.0); TOTAL PROTEIN 6.7 g/dL (6.3-8.2)
[2020-04-03] MEDS: ENOXAPARIN SODIUM INJ 100 MG/1 ML DISP.SYRIN SUBCUT SCH ×2 (09:34→21:40)
[2020-04-03 09:36] LABS: APPEARANCE,URINE CLEAR; BILIRUBIN,URINE NEGATIVE (NEGATIVE); COLOR,URINE YELLOW; GLUCOSE, URINE >=500 mg/dL (NEGATIVE); KETONES,URINE NEGATIVE (NEGATIVE); LEUKOCYTE ESTERASE,URINE NEGATIVE (NEGATIVE); NITRITE,URINE NEGATIVE (NEGATIVE); PROTEIN,URINE 100 mg/dL (NEGATIVE); URINE SPECIFIC GRAVITY 1.026; UROBILINOGEN,URINE NEGATIVE mg/dL (<2.0)
[2020-04-03] MEDS: DEXAMETHASONE SOD PHOSPHATE INJ 4 MG/1 ML VIAL IV SCH (10:03)
[2020-04-03] MEDS: DOCUSATE SODIUM 100 MG CAPSULE PO SCH ×2 (10:06→18:00)
[2020-04-03] MEDS: VITAMIN E (DL, ACETATE) 400 UNIT CAPSULE PO SCH (10:06)
[2020-04-03] MEDS: FAMOTIDINE 20 MG TABLET PO SCH ×2 (10:06→21:40)
[2020-04-03] MEDS: ASPIRIN 81 MG TABLET, ENT COATED PO SCH (10:06)
[2020-04-03] MEDS: METOPROLOL TARTRATE 25 MG TABLET PO SCH ×2 (10:07→21:40)
[2020-04-03] MEDS: ZINC SULFATE 220 MG CAPSULE PO SCH (10:07)
[2020-04-03] MEDS: MULTIVITAMIN TABLET PO SCH (10:07)
[2020-04-03] MEDS: BENAZEPRIL HCL 20 MG TABLET PO SCH (10:08)
[2020-04-03] MEDS: CHOLECALCIFEROL (D3) 1,000 UNIT (25 MCG) TABLET PO SCH (10:08)
[2020-04-03] MEDS: INSULIN REG, HUMAN 100 UNIT/ML 3 ML VIAL (PYX) SUBCUT SCH ×4 (10:09→21:46)
[2020-04-03] MEDS: TAMSULOSIN HCL 0.4 MG CAP.SR.24H PO SCH (10:10)
[2020-04-03] MEDS: CEFTRIAXONE 1 GM/D5W RTU 1 GM/50 ML RTUPB IV SCH (10:10)
--- NOTE | 2020-04-03 15:59 | PDOC PROGRESS REPORT ---
Subjective Date:: 04/03/20 Subjective:: The patient is resting in his bed. He states that overall he is feeling much be tter today. He is only requiring 1.5 L of oxygen at this point and he is doing much better. He does state he has a persistent cough. He has had no fever or shaking chills. No chest pain or heart palpitations. His appetite is improving and he is eating well. No nausea vomiting or diarrhea today. No urinary complaints Reason For Visit: PNEUMONIA DUE TO COVID 19 VIRUS Physical Exam Vital Signs: Temp Pulse Resp BP Pulse Ox 98.6 F 99 18 135/62 H 97 04/03/20 11:21 04/03/20 11:21 04/03/20 11:21 04/03/20 11:21 04/03/20 11:21 Intake & Output 04/02/20 04/03/20 04/04/20 06:59 06:59 06:59 Intake Total 504 1530 357 Output Total 175 0 600 Balance 329 1530 -243 Weight 99.6 kg 100.7 kg General appearance: PRESENT: no acute distress, well-developed, well-nourished, other - He is receiving oxygen via nasal cannula Head exam: PRESENT: atraumatic, normocephalic Mouth exam: PRESENT: moist Respiratory exam: PRESENT: clear to auscultation jayashree - However he is quite diminished in the lower bases bilaterally and somewhat diminished. ABSENT: accessory muscle use, tachypnea Cardiovascular exam: PRESENT: RRR, +S1, +S2 GI/Abdominal exam: PRESENT: normal bowel sounds, soft. ABSENT: guarding, rebound, rigid, tenderness Rectal exam: PRESENT: deferred Extremities exam: ABSENT: calf tenderness, pedal edema Neurological exam: PRESENT: alert, awake, oriented to person, oriented to place, oriented to time, oriented to situation Psychiatric exam: ABSENT: agitated, anxious Skin exam: PRESENT: dry, warm Results Laboratory Results: 04/03/20 04:09 04/03/20 04:09 04/03/20 04/03/20 04/03/20 04:09 04:09 08:52 WBC 4.6 RBC 4.42 Hgb 11.6 L Hct 35.8 L MCV 81 MCH 26.2 L MCHC 32.3 RDW 15.3 H Plt Count 146 L Sodium 139.6 Potassium 4.6 Chloride 101 Carbon Dioxide 30 Anion Gap 9 BUN 24 H Creatinine 0.78 Est GFR ( Amer) > 60 Glucose 238 H Calcium 10.0 Magnesium 1.9 Ferritin 118.00 Total Bilirubin 0.7 AST 44 Alkaline Phosphatase 95 C-Reactive Protein 17.7 H Total Protein 6.7 Albumin 4.0 Urine Color YELLOW Urine Appearance CLEAR Urine pH 6.0 Ur Specific [place] 1.026 Urine Protein 100 H Urine Glucose (UA) >=500 H Urine Ketones NEGATIVE Urine Blood NEGATIVE Urine Nitrite NEGATIVE Ur Leukocyte Esterase NEGATIVE Urine WBC (Auto) 1 Urine RBC (Auto) 0 04/01/20 04/01/20 04/02/20 10:53 13:57 04:19 Creatine Kinase 27 L Troponin I < 0.012 < 0.012 04/03/20 04:09 Creatine Kinase 22 L Troponin I Impressions: Chest CT 04/01/20 10:46 IMPRESSION: Acute bilateral/ multifocal peripheral ground-glass opacities in a peribronchial distribution. Correlation with clinical signs and symptoms for a multifocal infection (including COVID-19) is recommended. Assessment and Plan - Diagnosis (1) Acute respiratory failure Qualifiers: Respiratory failure complication: hypoxia Qualified Code(s): J96.01 - Acute respiratory failure with hypoxia Is this a current diagnosis for this admission?: Yes Plan: Overall the patient is improving. His acute respiratory failure was due to COVID-19 pneumonia. Currently down to 1.5 L of oxygen and improving. (2) Pneumonia due to COVID-19 virus Is this a current diagnosis for this admission?: Yes Plan: Continue IV ceftriaxone, zinc, vitamin D and ivermectin. He also is on dexamethasone 6 mg IV daily. He is clearly improving. (3) COPD exacerbation Is this a current diagnosis for this admission?: Yes Plan: Continue IV dexamethasone. Improving. He really is not wheezing on exam today. (4) Diabetes Qualifiers: Diabetes mellitus type: type 2 Is this a current diagnosis for this admission?: Yes Plan: Continue sliding-scale coverage (5) Peripheral vascular disease Is this a current diagnosis for this admission?: Yes Plan: The patient has known peripheral vascular disease. He told me that he had an appointment in the near future in [place] to get evaluated by one of the vascular surgeons there. However this afternoon he told the nurse that it was suspected that he had a blood clot. He is on full dose anticoagulation. I will obtain venous Dopplers to be on the safe side. He also is on antiplatelet therapy (6) CAD (coronary artery disease) Qualifiers: Coronary Disease-Associated Artery/Lesion type: [place] artery Associated angina: without angina Is this a current diagnosis for this admission?: Yes Plan: Continue aspirin and metoprolol. No complaints of chest pain (7) HTN (hypertension) Qualifiers: Hypertension type: essential hypertension Qualified Code(s): I10 - Essential (primary) hypertension Is this a current diagnosis for this admission?: No Plan: Continue metoprolol. His blood pressure is stable (8) Obesity (BMI 30.0-34.9) Is this a current diagnosis for this admission?: No Plan: His appetite is improving. Weight loss is recommended through dietary modification and exercise as tolerated. At this point continue to just encourage good balanced diet. (9) Anemia Is this a current diagnosis for this admission?: Yes Plan: Stable at this point (10) Thrombocytopenia Is this a current diagnosis for this admission?: Yes Plan: Likely due to his acute illness. Improving with treatment. (11) Do not intubate but use all other measures Is this a current diagnosis for this admission?: Yes - Plan Summary Summary: Overall the patient is improving. He is down to 1.5 L of oxygen. I suspect he will stabilize in the next several days and possibly can be discharged from the hospital in the near future. I am going to get venous Dopplers today as he did tell the nursing staff that he was being worked up for a possible clot. He is on full dose anticoagulation fortunately. I suspect he will be in the hospital for another day or 2. - Time Time Spent with patient: 35 or more minutes Medications reviewed and adjusted accordingly: Yes Anticipated Discharge Disposition: Home with Home Health Anticipated Discharge Timeframe: within 48 hours
[2020-04-03] MEDS: IVERMECTIN 3 MG TABLET PO SCH (18:00)
--- NOTE | 2020-04-03 20:36 | RADIOLOGY REPORT (SQ) ---
US LOWER EXTREMITY VEINS HISTORY: Leg pain and swelling. COMPARISON: None. TECHNIQUE: Blum-scale, color Doppler and spectral Doppler images of the bilateral lower extremity veins were obtained. FINDINGS: The bilateral common femoral, superficial femoral and popliteal veins are patent and compressible. Normal augmentation and color Doppler blood flow in the aforementioned veins. The visualized calf veins are also patent. Diffuse subcutaneous edema is present. IMPRESSION: No DVT in the bilateral lower extremities.
[2020-04-03] MEDS: LORAZEPAM INJ 2 MG/1 ML VIAL IV PRN (21:41)
[2020-04-03] MEDS: INSULIN GLARGINE,HUM.REC.ANLOG 1,000 UNIT/10 ML VIAL SUBCUT SCH (21:47)
[2020-04-03] MEDS: MELATONIN 5 MG TABLET PO SCH (21:48)
[2020-04-04 06:10] LABS: ABSOLUTE EOSINOPHILS # (AUTO) 0.1 10^3/uL (0.0-0.6); ABSOLUTE LYMPHOCYTES (AUTO) 1.5 10^3/uL (0.5-4.7); ABSOLUTE MONOCYTES (AUTO) 0.4 10^3/uL (0.1-1.4); ABSOLUTE NEUT (AUTO) 3.4 10^3/uL (1.7-8.2); BASOPHILS % (AUTO) 0.7 % (0-2); EOSINOPHILS % (AUTO) 1.1 % (0-6); HEMATOCRIT 34.4 % (37.9-51.0); HEMOGLOBIN 11.3 g/dL (13.5-17.0); LYMPHOCYTES % (AUTO) 28.4 % (13-45); MEAN CORPUSCULAR HEMOGLOBIN 26.3 pg (27.0-33.4); MEAN CORPUSCULAR HGB CONC 32.9 g/dL (32.0-36.0); MEAN CORPUSCULAR VOLUME 80 fl (80-97); MONOCYTES % (AUTO) 6.9 % (3-13); PLATELET COUNT 147 10^3/uL (150-450); RED BLOOD COUNT 4.29 10^6/uL (4.35-5.55); RED CELL DISTRIBUTION WIDTH 15.5 % (11.5-14.0); SEGMENTED NEUTROPHILS % (AUTO) 62.9 % (42-78); TOTAL CELLS COUNTED % (AUTO) 100 %; WHITE BLOOD COUNT 5.4 10^3/uL (4.0-10.5)
[2020-04-04 06:34] LABS: ALBUMIN 3.8 g/dL (3.5-5.0); ANION GAP 8 (5-19); BLOOD UREA NITROGEN 25 mg/dL (7-20); C-REACTIVE PROTEIN 10.1 mg/L (<10.0); CALCIUM 9.9 mg/dL (8.4-10.2); CARBON DIOXIDE 31 mmol/L (22-30); CHLORIDE 102 mmol/L (98-107); CREATINE KINASE 20 U/L (55-170); GLUCOSE 140 mg/dL (75-110); POTASSIUM 4.3 mmol/L (3.6-5.0)
[2020-04-04] MEDS: INSULIN REG, HUMAN 100 UNIT/ML 3 ML VIAL (PYX) SUBCUT SCH ×2 (09:19→12:24)
[2020-04-04] MEDS: ZINC SULFATE 220 MG CAPSULE PO SCH (09:27)
[2020-04-04] MEDS: ASPIRIN 81 MG TABLET, ENT COATED PO SCH (09:27)
[2020-04-04] MEDS: DOCUSATE SODIUM 100 MG CAPSULE PO SCH (09:27)
[2020-04-04] MEDS: BENAZEPRIL HCL 20 MG TABLET PO SCH (09:27)
[2020-04-04] MEDS: CHOLECALCIFEROL (D3) 1,000 UNIT (25 MCG) TABLET PO SCH (09:27)
[2020-04-04] MEDS: VITAMIN E (DL, ACETATE) 400 UNIT CAPSULE PO SCH (09:27)
[2020-04-04] MEDS: METOPROLOL TARTRATE 25 MG TABLET PO SCH (09:27)
[2020-04-04] MEDS: TAMSULOSIN HCL 0.4 MG CAP.SR.24H PO SCH (09:27)
[2020-04-04] MEDS: CEFTRIAXONE 1 GM/D5W RTU 1 GM/50 ML RTUPB IV SCH (09:28)
[2020-04-04] MEDS: MULTIVITAMIN TABLET PO SCH (09:28)
[2020-04-04] MEDS: ENOXAPARIN SODIUM INJ 100 MG/1 ML DISP.SYRIN SUBCUT SCH (09:29)
[2020-04-04] MEDS: FAMOTIDINE 20 MG TABLET PO SCH (09:29)
[2020-04-04] MEDS: DEXAMETHASONE SOD PHOSPHATE INJ 4 MG/1 ML VIAL IV SCH (09:29)
[2020-04-04 12:06] VITALS: BP 116/49
--- NOTE | 2020-04-04 18:09 | PDOC DISCHARGE SUMMARY ---
Impression - Admit/DC Date/PCP Admission Date/Primary Care Provider: 04/01/20 12:46 TAHIRA MANZO Discharge Date: 04/04/20 - Discharge Diagnosis (1) Pneumonia due to COVID-19 virus Is this a current diagnosis for this admission?: Yes (2) Acute on chronic respiratory failure with hypoxemia Is this a current diagnosis for this admission?: Yes (3) COPD (chronic obstructive pulmonary disease) Is this a current diagnosis for this admission?: Yes (4) Obesity (BMI 30.0-34.9) Is this a current diagnosis for this admission?: Yes (5) CAD (coronary artery disease) Is this a current diagnosis for this admission?: Yes (6) HLD (hyperlipidemia) Is this a current diagnosis for this admission?: Yes (7) HTN (hypertension) Is this a current diagnosis for this admission?: Yes - Assessment Summary: 75 year old male with history of COPD on home 2 L oxygen who presented with complaints of cough for the last 2 weeks. His was tested positive for COVID-19 10 days prior to admission. COVID-19 test done in the ER was positive. CT of the chest was negative for PE but positive for extensive pneumonia. He was treated with antibiotics, ivermectin, dexamethasone and Lovenox. He did well overall and was able to be discharged home on his home oxygen at 2 L (saturating in the mid-90s on 2 L O2 via [place]). - Additional Information Resuscitation Status: Do Not Intubate Discharge Diet: Cardiac Discharge Activity: Activity As Tolerated Referrals: VIV MAYER MD [ACTIVE STAFF] - CARLITOS GROVES NP-C [Primary Care Provider] - Follow up as needed Prescriptions: Azithromycin 250 mg PO DAILY #5 tablet Home Medications: Aspirin [Aspirin 81 mg Chewable Tablet] 81 mg PO DAILY 04/01/20 Benazepril HCl [Lotensin] 40 mg PO DAILY 04/01/20 Hydrochlorothiazide [Hydrodiuril 25 mg Tablet] 25 mg PO DAILY 04/01/20 Insulin Glargine,Hum.rec.anlog [Lantus Insulin 100 Unit/1 ml 10 ml] 52 unit SUBCUT QHS 04/01/20 Melatonin 10 mg PO QHS 04/01/20 Metformin HCl [Metformin HCl ER] 1,000 mg PO DAILY 04/01/20 Metoprolol Tartrate [Lopressor 25 mg Tablet] 25 mg PO Q12 04/01/20 Multivit-Min/FA/Lycopen/Lutein [Centrum Silver Men Tablet] 1 tab PO DAILY 04/01/20 Prednisone [Deltasone 5 mg Tablet] 2.5 mg PO Q2D 04/01/20 Tamsulosin HCl [Flomax] 0.4 mg PO DAILY 04/01/20 Ubidecarenone/Vit E Acet [Co Q-10 100 mg Softgel] 100 mg PO DAILY 04/01/20 Vitamin E 800 unit PO DAILY 04/01/20 Azithromycin 250 mg PO DAILY #5 tablet 04/04/20 History of Present Illiness History of Present Illness: JOHN PAUL SWEENEY is a 75 year old male Physical Exam Vital Signs: Temp Pulse Resp BP Pulse Ox 97.6 F 74 19 116/49 L 100 04/04/20 11:42 04/04/20 11:42 04/04/20 11:42 04/04/20 11:42 04/04/20 11:42 Intake & Output 04/03/20 04/04/20 04/05/20 06:59 06:59 06:59 Intake Total 1530 764 Output Total 0 600 Balance 1530 164 Weight 100.7 kg 98.2 kg Results Laboratory Results: WBC 5.4 10^3/uL (4.0-10.5) 04/04/20 05:33 RBC 4.29 10^6/uL (4.35-5.55) L 04/04/20 05:33 Hgb 11.3 g/dL (13.5-17.0) L 04/04/20 05:33 Hct 34.4 % (37.9-51.0) L 04/04/20 05:33 MCV 80 fl (80-97) 04/04/20 05:33 MCH 26.3 pg (27.0-33.4) L 04/04/20 05:33 MCHC 32.9 g/dL (32.0-36.0) 04/04/20 05:33 RDW 15.5 % (11.5-14.0) H 04/04/20 05:33 Plt Count 147 10^3/uL (150-450) L 04/04/20 05:33 Lymph % (Auto) 28.4 % (13-45) 04/04/20 05:33 [place] % (Auto) 6.9 % (3-13) 04/04/20 05:33 Eos % (Auto) 1.1 % (0-6) 04/04/20 05:33 Baso % (Auto) 0.7 % (0-2) 04/04/20 05:33 Absolute Neuts (auto) 3.4 10^3/uL (1.7-8.2) 04/04/20 05:33 Absolute Lymphs (auto) 1.5 10^3/uL (0.5-4.7) 04/04/20 05:33 Absolute Monos (auto) 0.4 10^3/uL (0.1-1.4) 04/04/20 05:33 Absolute Eos (auto) 0.1 10^3/uL (0.0-0.6) 04/04/20 05:33 Absolute Basos (auto) 0.0 10^3/uL (0.0-0.2) 04/04/20 05:33 Seg Neutrophils % 62.9 % (42-78) 04/04/20 05:33 ESR 49 mm/hr (0-20) H 04/01/20 10:53 D-Dimer 0.37 ug/mL (0.00-0.50) 04/01/20 10:53 Sodium 141.4 mmol/L (137-145) 04/04/20 05:33 Potassium 4.3 mmol/L (3.6-5.0) 04/04/20 05:33 Chloride 102 mmol/L (98-107) 04/04/20 05:33 Carbon Dioxide 31 mmol/L (22-30) H 04/04/20 05:33 Anion Gap 8 (5-19) 04/04/20 05:33 BUN 25 mg/dL (7-20) H 04/04/20 05:33 Creatinine 0.81 mg/dL (0.52-1.25) 04/04/20 05:33 Est GFR ( Amer) > 60 (>60) 04/04/20 05:33 Est GFR (MDRD) Non-Af > 60 (>60) 04/04/20 05:33 Glucose 140 mg/dL (75-110) H 04/04/20 05:33 POC Glucose 213 mg/dL (70-110) H 04/04/20 11:35 Lactic Acid 2.2 mmol/L (0.7-2.1) H 04/01/20 13:57 Calcium 9.9 mg/dL (8.4-10.2) 04/04/20 05:33 Phosphorus 5.0 mg/dL (2.5-4.5) H 04/04/20 05:33 Magnesium 1.8 mg/dL (1.6-2.3) 04/04/20 05:33 Ferritin 105.00 ng/mL (17.9-464.0) 04/04/20 05:33 Total Bilirubin 0.7 mg/dL (0.2-1.3) 04/03/20 04:09 Direct Bilirubin 0.4 mg/dL (0.0-0.4) 04/03/20 04:09 Neonat Total Bilirubin Not Reportable 04/03/20 04:09 Neonat Direct Bilirubin Not Reportable 04/03/20 04:09 Neonat Indirect Bili Not Reportable 04/03/20 04:09 AST 44 U/L (17-59) 04/03/20 04:09 ALT 45 U/L (<50) 04/03/20 04:09 Alkaline Phosphatase 95 U/L (38-126) 04/03/20 04:09 Lactate Dehydrogenase 153 U/L (120-246) 04/01/20 13:57 Creatine Kinase 20 U/L (55-170) L 04/04/20 05:33 Troponin I < 0.012 ng/mL 04/01/20 13:57 C-Reactive Protein 10.1 mg/L (<10.0) H 04/04/20 05:33 Total Protein 6.7 g/dL (6.3-8.2) 04/03/20 04:09 Albumin 3.8 g/dL (3.5-5.0) 04/04/20 05:33 Procalcitonin 0.08 ng/mL (0.00-0.08) 04/01/20 10:53 Urine Color YELLOW 04/03/20 08:52 Urine Appearance CLEAR 04/03/20 08:52 Urine pH 6.0 (5.0-9.0) 04/03/20 08:52 Ur Specific [place] 1.026 04/03/20 08:52 Urine Protein 100 mg/dL (NEGATIVE) H 04/03/20 08:52 Urine Glucose (UA) >=500 mg/dL (NEGATIVE) H 04/03/20 08:52 Urine Ketones NEGATIVE mg/dL (NEGATIVE) 04/03/20 08:52 Urine Blood NEGATIVE (NEGATIVE) 04/03/20 08:52 Urine Nitrite NEGATIVE (NEGATIVE) 04/03/20 08:52 Urine Bilirubin NEGATIVE (NEGATIVE) 04/03/20 08:52 Urine Urobilinogen NEGATIVE mg/dL (<2.0) 04/03/20 08:52 Ur Leukocyte Esterase NEGATIVE (NEGATIVE) 04/03/20 08:52 Urine WBC (Auto) 1 /HPF 04/03/20 08:52 Urine RBC (Auto) 0 /HPF 04/03/20 08:52 Squamous Epi Cells Auto <1 /HPF 04/02/20 14:30 Urine Mucus (Auto) RARE /LPF 04/03/20 08:52 Urine Ascorbic Acid NEGATIVE (NEGATIVE) 04/03/20 08:52 Influenza A (Rapid) Cancelled 04/01/20 12:25 Influenza A (RT-PCR) NEGATIVE (NEGATIVE) 04/01/20 12:25 Influenza B (Rapid) Cancelled 04/01/20 12:25 Influenza B (RT-PCR) NEGATIVE (NEGATIVE) 04/01/20 12:25 RSV (RT-PCR) NEGATIVE (NEGATIVE) 04/01/20 12:25 SARS-CoV-2 Rap RNA(RT-PCR) POSITIVE (NEGATIVE) 04/01/20 12:25 Blood Type A POSITIVE 04/01/20 13:57 04/01/20 04/01/20 10:53 13:57 Troponin I < 0.012 < 0.012 Impressions: Chest CT 04/01/20 10:46 IMPRESSION: Acute bilateral/ multifocal peripheral ground-glass opacities in a peribronchial distribution. Correlation with clinical signs and symptoms for a multifocal infection (including COVID-19) is recommended. Venous Doppler Study 04/03/20 15:47 IMPRESSION: No DVT in the bilateral lower extremities. Stroke Is this a Stroke Patient?: No Acute Heart Failure Is this a Heart Failure Patient?: No
== END 2020-04-04 12:45 | disposition home or self-care (01) | DRG 177 ==
LOC: ER 10:02 → EH 12:46 → 3N 17:26
PROVIDERS: ADMIT Internal Medicine; ATTEND Hospitalist
PROC: XW13325 Transfusion of Convalescent Plasma (Nonautologous) into Peripheral Vein, Percutaneous Approach, New Technology Group 5 (ICD-10-PCS; principal; 2020-04-01)
DX: U07.1 COVID-19 (principal); J96.21 Acute and chronic respiratory failure with hypoxia; J12.89 Other viral pneumonia; J44.1 Chronic obstructive pulmonary disease with (acute) exacerbation; E66.01 Morbid (severe) obesity due to excess calories; Z68.34 Body mass index [BMI] 34.0-34.9, adult; I25.10 Atherosclerotic heart disease of native coronary artery without angina pectoris; E78.5 Hyperlipidemia, unspecified; I10 Essential (primary) hypertension; E11.51 Type 2 diabetes mellitus with diabetic peripheral angiopathy without gangrene; D64.9 Anemia, unspecified; D69.6 Thrombocytopenia, unspecified; I25.2 Old myocardial infarction; Z99.81 Dependence on supplemental oxygen; Z79.899 Other long term (current) drug therapy; Z95.1 Presence of aortocoronary bypass graft; Z87.891 Personal history of nicotine dependence; Z85.038 Personal history of other malignant neoplasm of large intestine; Z90.49 Acquired absence of other specified parts of digestive tract; Z82.49 Family history of ischemic heart disease and other diseases of the circulatory system; Z79.4 Long term (current) use of insulin
CPT/HCPCS: 36415; 36430; 71250; 80053; 80069; 81001; 82550; 82728; 82962; 83605; 83615; 83735; 84145; 84484; 85025; 85027; 85379; 85652; 86140; 86900; 86901; 87040; 93005; 93010; 93970; 99285; 0241U; C9803; J0696; J1100; J1650; J1815; J2060; J3490; J7030

== ENCOUNTER → 2020-05-05 | Outpatient (CLI) | payer MEDICARE, OTHER ==
--- NOTE | 2020-05-05 16:25 | RADIOLOGY REPORT (SQ) ---
EXAM DESCRIPTION: CT CHEST WITHOUT IMAGES COMPLETED DATE/TIME: 05/05/2020 2:13 pm REASON FOR STUDY: PNEUMONIA J18.9 PNEUMONIA, UNSPECIFIED ORGANISM COMPARISON: 04/01/2020 TECHNIQUE: CT scan performed of the chest without intravenous contrast. Images reviewed with lung, soft tissue and bone windows. Reconstructed coronal and sagittal MPR images reviewed. All images st ored on PACS. All CT scanners at this facility use dose modulation, iterative reconstruction, and/or weight based d osing when appropriate to reduce radiation dose to as low as reasonably achievable (ALARA). [facility]: Dose Right [facility]: CareDose [facility]: Dose Right [facility]: Teradose 4D [facility]: [employer] RADIATION DOSE: CT Rad equipment meets quality standard of care and radiation dose reduction techniq ues were employed. CTDIvol: 17.2 mGy. DLP: 703 mGy-cm. mGy. LIMITATIONS: No technical limitations. FINDINGS: LUNGS AND PLEURA: No acute infiltrate or effusion. What appear to be mild atelectatic megan nge is seen in the left base. There is mild elevation of the left hemidiaphragm. HILAR AND MEDIASTINAL STRUCTURES: No identified masses or abnormal nodes. No obvious aneurysm. HEART AND VASCULAR STRUCTURES: No aneurysm. No pericardial effusion. UPPER ABDOMEN: Splenomegaly is present. THYROID AND OTHER SOFT TISSUES: No masses. No adenopathy. BONES: No significant finding. HARDWARE: Sternotomy wires. OTHER: No other significant findings. IMPRESSION: 1. There appear to be mild atelectatic changes in the left base. 2. Splenomegaly. TECHNICAL DOCUMENTATION: JOB ID: [id number] Quality ID # [id number]: Final reports with documentation of one or more dose reduction techniques (e.g., Au tomated exposure control, adjustment of the mA and/or kV according to patient size, use of iterative reconstruction technique) 2010 [employer]- All Rights Reserved Reading location - IP/workstation name: [email or web address]
== END ==
LOC: RAD 13:16
PROVIDERS: ATTEND Internal Medicine Pulmonary Disease
DX: J18.9 Pneumonia, unspecified organism (principal); R16.1 Splenomegaly, not elsewhere classified
CPT/HCPCS: 71250